=== PATIENT | female | born 1930 | race Caucasian/White ===

== ENCOUNTER 2017-02-12 06:32 | Observation (INO) ==
[2017-02-12] MEDS ORDERED: 0.9 % Sodium Chloride 1,000 ML IVC ONE (06:44)
--- NOTE | 2017-02-12 06:54 | Emergency Department Note ---
START Narrative - START START: 86 year old female with altered mental status brought to us via EMS. EMS states that patient was found on the toilet this morning by family members and her baseline is mobile and able to answers questions however now she appears increasingly drowsy and altered. will sign out to the day team, altered mental status workup has been started.
[2017-02-12 07:05] LABS: Eosinophils # 0.1 K/mcL (0.0-0.6); Eosinophils % 1.2 %; Hematocrit 39.3 % (35.3-44.9); Hemoglobin 13.5 g/dL (11.5-15.4); Immature Granulocytes % 0.7 % (0-4); Lymphocytes # 0.6 K/mcL (0.6-4.6); Lymphocytes % 7.7 %; Mean Corpuscular HGB Conc 34.4 g/dL (31.6-35.5); Mean Corpuscular Hemoglobin 29.2 pg (28.0-33.3); Mean Corpuscular Volume 85.1 fL (83.0-100.0); Mean Platelet Volume 10.7 fL (9.4-12.4); Monocytes # 0.2 K/mcL (0.0-1.3); Monocytes % 2.4 %; Neutrophils # 6.5 K/mcL (1.6-8.9); Platelet Count 145 K/mcL (140-400); Red Blood Count 4.62 M/mcL (3.82-4.97); Red Cell Distribution Width 14.2 % (11.5-14.5)
[2017-02-12 07:08] LABS: INR 1.2; Prothrombin Time 12.9 Seconds (9.4-12.1)
--- NOTE | 2017-02-12 07:09 | Emergency Department Note ---
Disposition Clinical Impression: Generalized weakness Altered mental status Qualifiers: Altered mental status type: unspecified Qualified Code(s): R41.82 - Altered mental status, unspecified Medication overdose Qualifiers: Encounter type: initial encounter Injury intent: accidental or unintentional Qualified Code(s): T50.901A - Poisoning by unspecified drugs, medicaments and biological substances, accidental (unintentional), initial encounter Disposition: Admitted As Inpatient Condition: Fair Referrals: NO,PCP [Primary Care Provider] - Forms: ED Satisfaction Letter Time of Disposition: 08:57 Altered Mental Status HPI - General Chief Complaint: ED Altered Mental Status Stated Complaint: Feels Terrible Time Seen by Provider: 02/12/17 07:09 Source: patient, family, EMS Mode of arrival: EMS Limitations: altered mental status Nursing Notes Reviewed: Yes Vital Signs Reviewed: Yes - History of Present Illness HPI Narrative: Patient is an 86-year-old female with past medical history of CVA, CAD, hyperlipidemia, hypertension, arthritis, dementia. She presented today via EMS due to altered mental status. According to family, patient was found sitting up on the toilet this morning and was confused. It is unknown if she fell and hit her head. Family is not present on my evaluation. However, according to EMS, the patient is usually baseline mobile and answers questions appropriately. On my exam, the patient was alert and oriented [address] She was not able to answer review of system questions. She says "everything hurts." Slurring of speech, can hardly keep her eyes open. Last known well was yesterday evening prior to bedtime. - Related Data Home Medications Medication Instructions Recorded Confirmed Aspirin 81 mg PO DAILY 06/08/16 02/12/17 Clopidogrel [Plavix] 75 mg PO DAILY 06/08/16 02/12/17 Escitalopram [Lexapro] 20 mg PO HS 06/08/16 02/12/17 Ferrous Sulfate [Iron] 325 mg PO DAILY 06/08/16 02/12/17 Furosemide [Lasix] 20 mg PO DAILY 06/08/16 02/12/17 Lactose-Reduced Food [Ensure 1 bottle PO BID 06/08/16 02/12/17 Complete] LevETIRAcetam [Keppra] 500 mg PO Q12H 06/08/16 02/12/17 Melatonin [Melatin] 3 mg PO HS PRN 06/08/16 02/12/17 Metformin [Glucophage] 500 mg PO BIDWM 06/08/16 02/12/17 Metoprolol XL (24 HR) Succ [Toprol 12.5 mg PO DAILY 06/08/16 02/12/17 Xl] Mirtazapine [Remeron] 15 mg PO HS 06/08/16 02/12/17 Multivitamin [Multivitamins] 1 tab PO DAILY 06/08/16 02/12/17 Methylphenidate HCl [Ritalin] 20 mg PO BID 06/27/16 02/12/17 Albuterol Sulfate [Proair 2 puff IH Q4H PRN 02/12/17 02/12/17 Respiclick] Fexofenadine HCl [Allergy Relief] 180 mg PO DAILY 02/12/17 02/12/17 Fluticasone Propionate [Flovent 1 puff IH BID 02/12/17 02/12/17 Hfa] HYDROcodone/Acet 7.5/325 mg [Lima 1 tab PO Q6H PRN 02/12/17 02/12/17 7.5-325 mg] Oxybutynin Chloride [Ditropan Xl] 5 mg PO HS 02/12/17 02/12/17 Oxygen 1 each .ROUTE AD 02/12/17 02/12/17 Triamcinolone Acet 0.1% CRM 1 appl TP BID 02/12/17 02/12/17 [Kenalog] Umeclidinium [place] [Incruse 1 puff IH DAILY 02/12/17 02/12/17 Ellipta] Previous Rx's Medication Instructions Recorded Isosorbide MONOnitrate (24 HR) 30 mg PO DAILY #30 tab.er.24h 06/10/16 [Imdur] Albuterol Neb [Proventil Neb] 2.5 mg IH Q6HR 30 Days 06/29/16 GuaiFENesin ER [Mucinex] 600 mg PO BID #10 tbbp.12hr 06/29/16 Alprazolam [Xanax 0.5 MG Tablet] 0.5 mg PO HS PRN #10 tablet 06/30/16 Allergies Allergy/AdvReac Type Severity Reaction Status Date / Time Amoxicillin Allergy Rash Verified 12/17/16 09:08 sulfamethoxazole Allergy Hives Verified 12/17/16 09:08 [From Bactrim] trimethoprim [From Bactrim] Allergy Hives Verified 12/17/16 09:08 Limitations: ROS unobtainable due to patients medical condition Past Medical History - Past Medical History Source: old records reviewed Medical history: Reports: arthritis, cardiomyopathy, CHF, coronary artery disease, CVA, dementia, diabetes, GERD, hyperlipidemia, hypertension, osteoporosis, seizures, syncope, TIA, valvular heart disease, other Surgical history: Reports: orthopedic, other (Lumbar fusion.), other ( 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 Craniotomy.) Psychiatric history: Reports: anxiety, bipolar, depression, other - Social History Smoking Status: Former smoker Smokeless Tobacco Status: No Alcohol use: Reports: none Drug use: Reports: none Physical Exam - General Limitations: altered mental status General appearance: other (very drowsy, can hardly keep eyes open) - Head Head exam: atraumatic, normocephalic, normal inspection - Eye Eye exam: Present: PERRL, EOMI. Absent: miosis, mydriasis - ENT ENT exam: normal exam, mucous membranes moist - Neck Neck exam: Present: normal inspection, full ROM, trachea midline. Absent: tenderness - Chest Chest inspection: Present: normal inspection, symmetric chest wall rise - Respiratory Respiratory exam: Present: normal lung sounds bilaterally - Cardiovascular Cardiovascular exam: Present: regular rate, normal rhythm, normal heart sounds - Abdominal Exam Abdominal exam: Present: soft, Non-Tender. Absent: tenderness, distention, guarding, rebound, rigidity - Extremities Exam Extremities exam: Present: full ROM, pedal edema (mild bilateral pedal edema and venous stasis dermatitis). Absent: tenderness - Neurological Exam Neurological exam: Present: other (drowsy, oriented x2, will not follow commands. Slurring of words) - Psychiatric Psychiatric exam: Present: flat affect, other - Skin Skin exam: Present: warm, dry, intact, normal color Course Course Narrative: Patient is hypertensive on presentation. Otherwise, her vitals were within normal limits on my exam. Patient is drowsy, can barely keep her eyes open, oriented to person and placed only, will not answer any review of system questions. She just keeps saying everything hurts. No focal neuro deficits. EKG shows left bundle-branch that is not new. Concern for medication interactions. 07:54 CBC and BMP show no major abnormality. Troponin negative. Alcohol level negative. CT the head was negative for any acute intracranial abnormality. Chest x-ray negative for any acute cardiopulmonary process. Currently waiting on urinalysis. Likely drug interaction. Patient is prescribed Lima and Xanax according to retail pharmacy manager prescription audit. 08:23 UA negative. ABG not concerning. Waiting UDS. 08:47 Urine Drug screen - negative. Will admit for further care and workup for AMS. Anoop Quijano, son, was contacted and confirmed patient was A&Ox3 yesterday evening and performed ADLs by herself, was found this morning in bathroom confused and "complete turnaround from her baseline." He denies any new meds, med changes, any falls that he knows of. Chest X-Ray 02/12/17 06:44 IMPRESSION: No acute cardiopulmonary disease. D/ / 02/12/2017 07:22:23 Yadiel Alvarado MD / lakeisha Interpreting Provider: Yadiel Alvarado MD Head CT 02/12/17 06:45 IMPRESSION: No acute intracranial abnormality. D/ / Quinton Arnold MD / Quinton Arnold MD Interpreting Provider: Quinton Arnold MD Vital Signs Temperature 97.6 F 02/12/17 06:35 Pulse Rate 99 02/12/17 06:35 Respiratory Rate 20 02/12/17 06:35 Blood Pressure 189/127 02/12/17 06:35 O2 Sat by Pulse Oximetry 90 02/12/17 06:35 Temperature 97.6 F 02/12/17 06:35 Pulse Rate 73 02/12/17 08:45 Respiratory Rate 22 02/12/17 08:45 Blood Pressure 157/102 02/12/17 08:45 O2 Sat by Pulse Oximetry 95 02/12/17 08:45 Oxygen Delivery Oxygen Delivery Nasal Cannula Altered Mental Status - MDM Narrative Medical decision making narrative: Patient is hypertensive on presentation. Otherwise, her vitals were within normal limits on my exam. Patient is drowsy, can barely keep her eyes open, oriented to person and placed only, will not answer any review of system questions. She just keeps saying everything hurts. No focal neuro deficits. EKG shows left bundle-branch that is not new. Concern for medication interactions. 07:54 CBC and BMP show no major abnormality. Troponin negative. Alcohol level negative. CT the head was negative for any acute intracranial abnormality. Chest x-ray negative for any acute cardiopulmonary process. Currently waiting on urinalysis. Likely drug interaction. Patient is prescribed Lima and Xanax according to retail pharmacy manager prescription audit. 08:23 UA negative. ABG not concerning. Waiting UDS. 08:47 Urine Drug screen - negative. Will admit for further care and workup for AMS. Anoop Qiujano, son, was contacted and confirmed patient was A&Ox3 yesterday evening and performed ADLs by herself, was found this morning in bathroom confused and "complete turnaround from her baseline." He denies any new meds, med changes, any falls that he knows of. - Medical Records Medical records reviewed: Yes I reviewed the patient's medical records. - Lab Data Lab results reviewed: Yes I reviewed the patient's lab results. Result diagrams: 02/12/17 06:51 02/12/17 06:51 Lab Results 02/12/17 02/12/17 02/12/17 Range/Units 06:51 06:51 06:51 WBC 7.4 (4.3-11.1) K/mcL RBC 4.62 (3.82-4.97) M/mcL Hgb 13.5 (11.5-15.4) g/dL Hct 39.3 (35.3-44.9) % MCV 85.1 (83.0-100.0) fL MCH 29.2 (28.0-33.3) pg MCHC 34.4 (31.6-35.5) g/dL RDW 14.2 (11.5-14.5) % Plt Count 145 (140-400) K/mcL MPV 10.7 (9.4-12.4) fL Immature Gran % 0.7 (0-4) % Seg Neutrophils % 88.0 % Lymphocytes % 7.7 % Monocytes % 2.4 % Eosinophils % 1.2 % Basophils % 0.0 % Neutrophils # 6.5 (1.6-8.9) K/mcL Lymphocytes # 0.6 (0.6-4.6) K/mcL Monocytes # 0.2 (0.0-1.3) K/mcL Eosinophils # 0.1 (0.0-0.6) K/mcL Basophils # 0.0 (0.0-0.2) K/mcL PT 12.9 H (9.4-12.1) Seconds INR 1.2 APTT 39.8 H (26.0-36.0) Seconds ABG pH (7.32-7.45) pH Units ABG pCO2 (35-45) mmHg ABG pO2 (85-104) mmHg ABG HCO3 (21-27) mEQ/L ABG Total CO2 (20-26) mEq/L ABG O2 Saturation (95-98) % ABG Base Excess (-2.0 to 3.0) mEq/L Blood Gas Modality Inspired O2 % Sodium 140 (136-145) mEq/L Potassium 3.4 L (3.5-4.5) mEq/L Chloride 100 (98-109) mEq/L Carbon Dioxide 28 (19-29) mEq/L BUN 21 H (7-20) mg/dL Creatinine 0.77 (0.57-1.11) mg/dL Est GFR ( Amer) > 60 (> 60) Est GFR (Non-Af Amer) > 60 (> 60) BUN/Creatinine Ratio 27 H (6-26) Glucose 189 H (70-99) mg/dL Calculated Osmolality 298 (280-300) Calcium 9.2 (8.6-10.8) mg/dL Total Bilirubin 1.3 H (0.2-1.2) mg/dL Direct Bilirubin 0.5 (0.0-0.5) mg/dL Indirect Bilirubin 0.8 (0.0-1.2) mg/dL AST 12 (5-34) Units/L ALT 7 (0-55) Units/L Alkaline Phosphatase 129 H (38-126) Units/L Troponin I (0-0.03) ng/mL Serum Total Protein 7.4 (6.0-8.3) g/dL Albumin 4.5 (3.5-5.0) g/dL Globulin 2.9 (2.4-3.5) g/dL Albumin/Globulin Ratio 1.6 (1.1-2.2) Urine Color (Yellow) Urine Clarity (Clear) Urine pH (5.0-8.0) pH Units Ur Specific [place] (1.010-1.025) Urine Protein (Neg-Trace) mg/dL Urine Glucose (UA) (Normal) mg/dL Urine Ketones (Negative) mg/dL Urine Blood (Negative) Urine Nitrite (Negative) Urine Bilirubin (Negative) Urine Urobilinogen (Normal) mg/dL Ur Leukocyte Esterase (Negative) Urine Microscopic RBC (0-3) per hpf Urine Microscopic WBC (0-3) per hpf Ur Squamous Epith Cells (None-Few) per lpf Urine Bacteria (None-Few) per hpf Hyaline Casts (None-Few) per lpf Ur Culture Indicated? (NO) Urine Opiates Screen (Pvhtrd=306) ng/mL Ur Barbiturates Screen (Iksxvl=833) ng/mL Ur Phencyclidine Scrn (Cutoff=25) ng/mL Ur Amphetamines Screen (Vyftjy=7363) ng/mL U Benzodiazepines Scrn (Appbpk=503) ng/mL Urine Cocaine Screen (Cutoff= 300) ng/mL U Marijuana (THC) Screen (Cutoff = 50) ng/mL Ethyl Alcohol < 10 (0-10) mg/dL 02/12/17 02/12/17 02/12/17 Range/Units 06:51 08:00 08:00 WBC (4.3-11.1) K/mcL RBC (3.82-4.97) M/mcL Hgb (11.5-15.4) g/dL Hct (35.3-44.9) % MCV (83.0-100.0) fL MCH (28.0-33.3) pg MCHC (31.6-35.5) g/dL RDW (11.5-14.5) % Plt Count (140-400) K/mcL MPV (9.4-12.4) fL Immature Gran % (0-4) % Seg Neutrophils % % Lymphocytes % % Monocytes % % Eosinophils % % Basophils % % Neutrophils # (1.6-8.9) K/mcL Lymphocytes # (0.6-4.6) K/mcL Monocytes # (0.0-1.3) K/mcL Eosinophils # (0.0-0.6) K/mcL Basophils # (0.0-0.2) K/mcL PT (9.4-12.1) Seconds INR APTT (26.0-36.0) Seconds ABG pH (7.32-7.45) pH Units ABG pCO2 (35-45) mmHg ABG pO2 (85-104) mmHg ABG HCO3 (21-27) mEQ/L ABG Total CO2 (20-26) mEq/L ABG O2 Saturation (95-98) % ABG Base Excess (-2.0 to 3.0) mEq/L Blood Gas Modality Inspired O2 % Sodium (136-145) mEq/L Potassium (3.5-4.5) mEq/L Chloride (98-109) mEq/L Carbon Dioxide (19-29) mEq/L BUN (7-20) mg/dL Creatinine (0.57-1.11) mg/dL Est GFR ( Amer) (> 60) Est GFR (Non-Af Amer) (> 60) BUN/Creatinine Ratio (6-26) Glucose (70-99) mg/dL Calculated Osmolality (280-300) Calcium (8.6-10.8) mg/dL Total Bilirubin (0.2-1.2) mg/dL Direct Bilirubin (0.0-0.5) mg/dL Indirect Bilirubin (0.0-1.2) mg/dL AST (5-34) Units/L ALT (0-55) Units/L Alkaline Phosphatase (38-126) Units/L Troponin I 0.00 (0-0.03) ng/mL Serum Total Protein (6.0-8.3) g/dL Albumin (3.5-5.0) g/dL Globulin (2.4-3.5) g/dL Albumin/Globulin Ratio (1.1-2.2) Urine Color Yellow (Yellow) Urine Clarity Clear (Clear) Urine pH 7.5 (5.0-8.0) pH Units Ur Specific [place] 1.012 (1.010-1.025) Urine Protein >=300 H (Neg-Trace) mg/dL Urine Glucose (UA) 100 H (Normal) mg/dL Urine Ketones Negative (Negative) mg/dL Urine Blood Moderate H (Negative) Urine Nitrite Negative (Negative) Urine Bilirubin Negative (Negative) Urine Urobilinogen Normal (Normal) mg/dL Ur Leukocyte Esterase Negative (Negative) Urine Microscopic RBC 5-15 H (0-3) per hpf Urine Microscopic WBC 3-5 H (0-3) per hpf Ur Squamous Epith Cells Many H (None-Few) per lpf Urine Bacteria None Seen (None-Few) per hpf Hyaline Casts None Seen (None-Few) per lpf Ur Culture Indicated? NO (NO) Urine Opiates Screen Negative (Fgvmfh=572) ng/mL Ur Barbiturates Screen Negative (Xuoact=596) ng/mL Ur Phencyclidine Scrn Negative (Cutoff=25) ng/mL Ur Amphetamines Screen Negative (Wpntwb=9437) ng/mL U Benzodiazepines Scrn Negative (Hbhiqv=066) ng/mL Urine Cocaine Screen Negative (Cutoff= 300) ng/mL U Marijuana (THC) Screen Negative (Cutoff = 50) ng/mL Ethyl Alcohol (0-10) mg/dL 02/12/17 Range/Units 08:05 WBC (4.3-11.1) K/mcL RBC (3.82-4.97) M/mcL Hgb (11.5-15.4) g/dL Hct (35.3-44.9) % MCV (83.0-100.0) fL MCH (28.0-33.3) pg MCHC (31.6-35.5) g/dL RDW (11.5-14.5) % Plt Count (140-400) K/mcL MPV (9.4-12.4) fL Immature Gran % (0-4) % Seg Neutrophils % % Lymphocytes % % Monocytes % % Eosinophils % % Basophils % % Neutrophils # (1.6-8.9) K/mcL Lymphocytes # (0.6-4.6) K/mcL Monocytes # (0.0-1.3) K/mcL Eosinophils # (0.0-0.6) K/mcL Basophils # (0.0-0.2) K/mcL PT (9.4-12.1) Seconds INR APTT (26.0-36.0) Seconds ABG pH 7.46 H (7.32-7.45) pH Units ABG pCO2 39 (35-45) mmHg ABG pO2 89 (85-104) mmHg ABG HCO3 27.7 H (21-27) mEQ/L ABG Total CO2 28.9 H (20-26) mEq/L ABG O2 Saturation 97 (95-98) % ABG Base Excess 3.7 H (-2.0 to 3.0) mEq/L Blood Gas Modality [place] Inspired O2 28 % Sodium (136-145) mEq/L Potassium (3.5-4.5) mEq/L Chloride (98-109) mEq/L Carbon Dioxide (19-29) mEq/L BUN (7-20) mg/dL Creatinine (0.57-1.11) mg/dL Est GFR ( Amer) (> 60) Est GFR (Non-Af Amer) (> 60) BUN/Creatinine Ratio (6-26) Glucose (70-99) mg/dL Calculated Osmolality (280-300) Calcium (8.6-10.8) mg/dL Total Bilirubin (0.2-1.2) mg/dL Direct Bilirubin (0.0-0.5) mg/dL Indirect Bilirubin (0.0-1.2) mg/dL AST (5-34) Units/L ALT (0-55) Units/L Alkaline Phosphatase (38-126) Units/L Troponin I (0-0.03) ng/mL Serum Total Protein (6.0-8.3) g/dL Albumin (3.5-5.0) g/dL Globulin (2.4-3.5) g/dL Albumin/Globulin Ratio (1.1-2.2) Urine Color (Yellow) Urine Clarity (Clear) Urine pH (5.0-8.0) pH Units Ur Specific [place] (1.010-1.025) Urine Protein (Neg-Trace) mg/dL Urine Glucose (UA) (Normal) mg/dL Urine Ketones (Negative) mg/dL Urine Blood (Negative) Urine Nitrite (Negative) Urine Bilirubin (Negative) Urine Urobilinogen (Normal) mg/dL Ur Leukocyte Esterase (Negative) Urine Microscopic RBC (0-3) per hpf Urine Microscopic WBC (0-3) per hpf Ur Squamous Epith Cells (None-Few) per lpf Urine Bacteria (None-Few) per hpf Hyaline Casts (None-Few) per lpf Ur Culture Indicated? (NO) Urine Opiates Screen (Zyarta=602) ng/mL Ur Barbiturates Screen (Stuilk=940) ng/mL Ur Phencyclidine Scrn (Cutoff=25) ng/mL Ur Amphetamines Screen (Dheqrc=4156) ng/mL U Benzodiazepines Scrn (Zkjrir=856) ng/mL Urine Cocaine Screen (Cutoff= 300) ng/mL U Marijuana (THC) Screen (Cutoff = 50) ng/mL Ethyl Alcohol (0-10) mg/dL - Radiology Data Radiology results reviewed: Yes I reviewed the patient's radiology results. Chest X-Ray 02/12/17 06:44 IMPRESSION: No acute cardiopulmonary disease. D/ / 02/12/2017 07:22:23 Yadiel Alvarado MD / [email or web address] Interpreting Provider: Yadiel Alvarado MD Head CT 02/12/17 06:45 IMPRESSION: No acute intracranial abnormality. D/ / Quinton Arnold MD / Quinton Arnold MD Interpreting Provider: Quinton Arnold MD - EKG Data EKG attestation: Yes I reviewed and interpreted this EKG. EKG results narrative: 02/12/2017 at 06:46. Left bundle branch block. Sinus rhythm. Rate 95. DE 195. QRS 161. QTc 444. No acute ST elevation or depression. No changes from previous EKG from 12/17/2016 TPA Checklist - LKW: 3-4.5 hrs Add. Contraindications Patient/family understanding: The patient/family members have been counseled and understood the risk, benefit , and alternatives of treatment. Mindy - Mindy Situation: Demographics, MOA Background: Presenting Complaint, Relevant PMH, Meds, & Allergies Assessment: Vital Signs, Course and respsone to treatment, Exam Concerns, Patient/Family Expectation, Pertinant Lab Results, Outstanding Labs Recommendation: Barrier(s) to disposition, Recommendation based on pending studies, treatments, or consults Mindy Report Given to: Dr. Dylna Guillen Repor Time: 08:57
[2017-02-12 07:11] LABS: Activated Partial Thrombo Time 39.8 Seconds (26.0-36.0)
[2017-02-12 07:19] LABS: Alanine Aminotransferase 7 Units/L (0-55); Albumin 4.5 g/dL (3.5-5.0); Albumin/Globulin Ratio 1.6 (1.1-2.2); Alkaline Phosphatase 129 Units/L (38-126); Aspartate Amino Transferase 12 Units/L (5-34); BUN/Creatinine Ratio 27 (6-26); Bilirubin,Direct 0.5 mg/dL (0.0-0.5); Bilirubin,Indirect 0.8 mg/dL (0.0-1.2); Bilirubin,Total 1.3 mg/dL (0.2-1.2); Blood Urea Nitrogen 21 mg/dL (7-20); Calcium 9.2 mg/dL (8.6-10.8); Carbon Dioxide 28 mEq/L (19-29); Chloride 100 mEq/L (98-109); Globulin 2.9 g/dL (2.4-3.5); Glucose 189 mg/dL (70-99); Osmolality,Calculated 298 (280-300); Potassium 3.4 mEq/L (3.5-4.5); Sodium 140 mEq/L (136-145); Total Protein 7.4 g/dL (6.0-8.3); eGFR For African Americans > 60 (> 60); eGFR For Non-African Americans > 60 (> 60)
--- NOTE | 2017-02-12 07:20 | Emergency Department Note ---
Disposition Clinical Impression: Altered mental status, Medication overdose Disposition: Admitted As Inpatient Condition: Fair Referrals: NO,PCP [Primary Care Provider] - Forms: ED Satisfaction Letter General Adult HPI - General Chief complaint: ED Altered Mental Status Stated complaint: Feels Terrible Source: patient, family, EMS Mode of arrival: EMS Limitations: altered mental status - History of Present Illness Pain Scale: 0 - Related Data Home Medications Medication Instructions Recorded Confirmed Aspirin 81 mg PO DAILY 06/08/16 02/12/17 Clopidogrel [Plavix] 75 mg PO DAILY 06/08/16 02/12/17 Escitalopram [Lexapro] 20 mg PO HS 06/08/16 02/12/17 Ferrous Sulfate [Iron] 325 mg PO DAILY 06/08/16 02/12/17 Furosemide [Lasix] 20 mg PO DAILY 06/08/16 02/12/17 Lactose-Reduced Food [Ensure 1 bottle PO BID 06/08/16 02/12/17 Complete] LevETIRAcetam [Keppra] 500 mg PO Q12H 06/08/16 02/12/17 Melatonin [Melatin] 3 mg PO HS PRN 06/08/16 02/12/17 Metformin [Glucophage] 500 mg PO BIDWM 06/08/16 02/12/17 Metoprolol XL (24 HR) Succ [Toprol 12.5 mg PO DAILY 06/08/16 02/12/17 Xl] Mirtazapine [Remeron] 15 mg PO HS 06/08/16 02/12/17 Multivitamin [Multivitamins] 1 tab PO DAILY 06/08/16 02/12/17 Methylphenidate HCl [Ritalin] 20 mg PO BID 06/27/16 02/12/17 Albuterol Sulfate [Proair 2 puff IH Q4H PRN 02/12/17 02/12/17 Respiclick] Fexofenadine HCl [Allergy Relief] 180 mg PO DAILY 02/12/17 02/12/17 Fluticasone Propionate [Flovent 1 puff IH BID 02/12/17 02/12/17 Hfa] HYDROcodone/Acet 7.5/325 mg [[place] 1 tab PO Q6H PRN 02/12/17 02/12/17 7.5-325 mg] Oxybutynin Chloride [Ditropan Xl] 5 mg PO HS 02/12/17 02/12/17 Oxygen 1 each .ROUTE AD 02/12/17 02/12/17 Triamcinolone Acet 0.1% CRM 1 appl TP BID 02/12/17 02/12/17 [Kenalog] Umeclidinium [place] [Incruse 1 puff IH DAILY 02/12/17 02/12/17 Ellipta] Previous Rx's Medication Instructions Recorded Isosorbide MONOnitrate (24 HR) 30 mg PO DAILY #30 tab.er.24h 06/10/16 [Imdur] Albuterol Neb [Proventil Neb] 2.5 mg IH Q6HR 30 Days 06/29/16 GuaiFENesin ER [Mucinex] 600 mg PO BID #10 tbbp.12hr 06/29/16 Alprazolam [Xanax 0.5 MG Tablet] 0.5 mg PO HS PRN #10 tablet 06/30/16 Allergies Allergy/AdvReac Type Severity Reaction Status Date / Time Amoxicillin Allergy Rash Verified 12/17/16 09:08 sulfamethoxazole Allergy Hives Verified 12/17/16 09:08 [From Bactrim] trimethoprim [From Bactrim] Allergy Hives Verified 12/17/16 09:08 Past Medical History - Past Medical History Medical history: Reports: arthritis, cardiomyopathy, CHF, coronary artery disease, CVA, dementia, diabetes, GERD, hyperlipidemia, hypertension, osteoporosis, seizures, syncope, TIA, valvular heart disease, other Surgical history: Reports: orthopedic, other (Lumbar fusion.), other ( 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 Craniotomy.) Psychiatric history: Reports: anxiety, bipolar, depression, other - Social History Smoking Status: Former smoker Smokeless Tobacco Status: No Alcohol use: Reports: none Drug use: Reports: none Physical Exam - General Limitations: altered mental status General appearance: alert Course Vital Signs Temperature 97.6 F 02/12/17 06:35 Pulse Rate 99 02/12/17 06:35 Respiratory Rate 20 02/12/17 06:35 Blood Pressure 189/127 02/12/17 06:35 O2 Sat by Pulse Oximetry 90 02/12/17 06:35 Temperature 97.6 F 02/12/17 06:35 Pulse Rate 91 02/12/17 08:01 Respiratory Rate 20 02/12/17 08:01 Blood Pressure 186/103 02/12/17 08:01 O2 Sat by Pulse Oximetry 96 02/12/17 08:01 Oxygen Delivery Oxygen Delivery Nasal Cannula Medical Decision Making - Lab Data Result diagrams: 02/12/17 06:51 02/12/17 06:51 Lab Results 02/12/17 02/12/17 02/12/17 Range/Units 06:51 06:51 06:51 WBC 7.4 (4.3-11.1) K/mcL RBC 4.62 (3.82-4.97) M/mcL Hgb 13.5 (11.5-15.4) g/dL Hct 39.3 (35.3-44.9) % MCV 85.1 (83.0-100.0) fL MCH 29.2 (28.0-33.3) pg MCHC 34.4 (31.6-35.5) g/dL RDW 14.2 (11.5-14.5) % Plt Count 145 (140-400) K/mcL MPV 10.7 (9.4-12.4) fL Immature Gran % 0.7 (0-4) % Seg Neutrophils % 88.0 % Lymphocytes % 7.7 % Monocytes % 2.4 % Eosinophils % 1.2 % Basophils % 0.0 % Neutrophils # 6.5 (1.6-8.9) K/mcL Lymphocytes # 0.6 (0.6-4.6) K/mcL Monocytes # 0.2 (0.0-1.3) K/mcL Eosinophils # 0.1 (0.0-0.6) K/mcL Basophils # 0.0 (0.0-0.2) K/mcL PT 12.9 H (9.4-12.1) Seconds INR 1.2 APTT 39.8 H (26.0-36.0) Seconds Sodium 140 (136-145) mEq/L Potassium 3.4 L (3.5-4.5) mEq/L Chloride 100 (98-109) mEq/L Carbon Dioxide 28 (19-29) mEq/L BUN 21 H (7-20) mg/dL Creatinine 0.77 (0.57-1.11) mg/dL Est GFR ( Amer) > 60 (> 60) Est GFR (Non-Af Amer) > 60 (> 60) BUN/Creatinine Ratio 27 H (6-26) Glucose 189 H (70-99) mg/dL Calculated Osmolality 298 (280-300) Calcium 9.2 (8.6-10.8) mg/dL Total Bilirubin 1.3 H (0.2-1.2) mg/dL Direct Bilirubin 0.5 (0.0-0.5) mg/dL Indirect Bilirubin 0.8 (0.0-1.2) mg/dL AST 12 (5-34) Units/L ALT 7 (0-55) Units/L Alkaline Phosphatase 129 H (38-126) Units/L Troponin I (0-0.03) ng/mL Serum Total Protein 7.4 (6.0-8.3) g/dL Albumin 4.5 (3.5-5.0) g/dL Globulin 2.9 (2.4-3.5) g/dL Albumin/Globulin Ratio 1.6 (1.1-2.2) Ethyl Alcohol < 10 (0-10) mg/dL 02/12/17 Range/Units 06:51 WBC (4.3-11.1) K/mcL RBC (3.82-4.97) M/mcL Hgb (11.5-15.4) g/dL Hct (35.3-44.9) % MCV (83.0-100.0) fL MCH (28.0-33.3) pg MCHC (31.6-35.5) g/dL RDW (11.5-14.5) % Plt Count (140-400) K/mcL MPV (9.4-12.4) fL Immature Gran % (0-4) % Seg Neutrophils % % Lymphocytes % % Monocytes % % Eosinophils % % Basophils % % Neutrophils # (1.6-8.9) K/mcL Lymphocytes # (0.6-4.6) K/mcL Monocytes # (0.0-1.3) K/mcL Eosinophils # (0.0-0.6) K/mcL Basophils # (0.0-0.2) K/mcL PT (9.4-12.1) Seconds INR APTT (26.0-36.0) Seconds Sodium (136-145) mEq/L Potassium (3.5-4.5) mEq/L Chloride (98-109) mEq/L Carbon Dioxide (19-29) mEq/L BUN (7-20) mg/dL Creatinine (0.57-1.11) mg/dL Est GFR ( Amer) (> 60) Est GFR (Non-Af Amer) (> 60) BUN/Creatinine Ratio (6-26) Glucose (70-99) mg/dL Calculated Osmolality (280-300) Calcium (8.6-10.8) mg/dL Total Bilirubin (0.2-1.2) mg/dL Direct Bilirubin (0.0-0.5) mg/dL Indirect Bilirubin (0.0-1.2) mg/dL AST (5-34) Units/L ALT (0-55) Units/L Alkaline Phosphatase (38-126) Units/L Troponin I 0.00 (0-0.03) ng/mL Serum Total Protein (6.0-8.3) g/dL Albumin (3.5-5.0) g/dL Globulin (2.4-3.5) g/dL Albumin/Globulin Ratio (1.1-2.2) Ethyl Alcohol (0-10) mg/dL Attestation Statement - Attestation Attestation: I examined this patient and my medical decision-making was reviewed with the [facility] [employer] [facility]/PA/Advanced Practice Nurse/Resident Physician. I agree with the documented findings, disposition and treatment plan as described except to the extent set forth below. [id number] time provided Care assumed from Dr. Burt at 7 AM pending test results and reevaluation. Patient presents with increased sleepiness described as altered mental status from baseline. At the time of my exam she is awake and sleepy. She is slow to follow commands without focal deficit. Gives incompletely correct answers to questions. Workup pending. Review of medication list pending 08:08: Attempted to contact the patient's son by telephone number area code [phone] but there was no answer
[2017-02-12 07:22] LABS: Ethanol < 10 mg/dL (0-10)
[2017-02-12 08:06] LABS: Bilirubin,Urine Negative (Negative); Blood,Urine Moderate (Negative); Clarity,Urine Clear (Clear); Color,Urine Yellow (Yellow); Glucose,Urine (UA) 100 mg/dL (Normal); Ketones,Urine Negative (Negative); Leukocyte Esterase,Urine Negative (Negative); Nitrite,Urine Negative (Negative); PH,Urine 7.5 pH Units (5.0-8.0); Protein,Urine >=300 mg/dL (Neg-Trace); Specific Gravity,Urine 1.012 (1.010-1.025); Urobilinogen,Urine Normal (Normal)
[2017-02-12 08:09] LABS: Bacteria,Urine None Seen per hpf (None-Few); Hyaline Casts,Urine None Seen per lpf (None-Few); Squamous Epithelial Cell,Urine Many per lpf (None-Few)
[2017-02-12 08:20] LABS: ABG Base Excess 3.7 mEq/L (-2.0 to 3.0); ABG HCO3 27.7 mEQ/L (21-27); ABG Oxygen Saturation 97 % (95-98); ABG PCO2 39 mmHg (35-45); ABG PH 7.46 pH Units (7.32-7.45); ABG PO2 89 mmHg (85-104); ABG TCO2 28.9 mEq/L (20-26); Blood Gas FiO2 28 %
[2017-02-12 08:45] LABS: Amphetamine Screen,Urine Negative ng/mL (Cutoff=1000); Barbiturate Screen,Urine Negative ng/mL (Cutoff=200); Benzodiazepines Screen,Urine Negative ng/mL (Cutoff=200); Cannabinoid Screen,Urine Negative ng/mL (Cutoff = 50); Cocaine Screen,Urine Negative ng/mL (Cutoff= 300); Opiate Screen,Urine Negative ng/mL (Cutoff=300); Phencyclidine Screen,Urine Negative ng/mL (Cutoff=25)
[2017-02-12] MEDS ORDERED: Naloxone 0.4 MG/ML INJ IVP PRN (08:57)
[2017-02-12] MEDS ORDERED: Acetaminophen 325 MG TABLET PO PRN (08:57)
[2017-02-12] MEDS ORDERED: Melatonin 3 MG TABLET PO PRN (09:01)
[2017-02-12] MEDS ORDERED: Dextrose Gel 15 GM PO PRN ×2 (09:03)
[2017-02-12] MEDS ORDERED: *HR* Dextrose 50 % in Water (Syg) 50 ML SYRINGE IVP PRN (09:03)
[2017-02-12] MEDS ORDERED: D5% in Water 1,000 ML IVC PRN (09:03)
[2017-02-12] MEDS: levETIRAcetam 250 MG TABLET PO SCH ×2 (09:15→20:25)
--- NOTE | 2017-02-12 09:54 | Internal Med History&Physical ---
Date of Encounter: 02/12/17 Time of Encounter: 09:00 Assessment and Plan (1) Altered mental status Current visit: Yes Status: Acute Observation. Patient with excessive somnolence and confusion. Could be related to medications that the patient is taking. She is on multiple medications with sedative effects. We will check Keppra level. Also seizure precautions. Monitor vital signs closely. CT of the head was negative. If altered mental status persists, consider EEG and lumbar puncture along with neurology consult. Qualifiers: Altered mental status type: somnolence Qualified Code(s): R40.0 - Somnolence (2) CAD (coronary artery disease) Current visit: No Status: Chronic Continue aspirin and Plavix along with metoprolol. Qualifiers: Coronary Disease-Associated Artery/Lesion type: unspecified vessel or lesion type [place] vs. transplanted heart: [place] heart Associated angina: without angina Qualified Code(s): I25.10 - Atherosclerotic heart disease of [place] coronary artery without angina pectoris (3) Diabetes mellitus Current visit: Yes Status: Chronic Blood sugars slightly elevated this morning. We will monitor blood sugars and place patient on sliding scale insulin. Qualifiers: Diabetes mellitus type: type 2 Diabetes mellitus complication status: with kidney complications Diabetes mellitus complication detail: with chronic kidney disease Diabetes mellitus oysterman insulin use: without oysterman use Chronic kidney disease stage: stage 3 (moderate) Qualified Code(s): E11.22 - Type 2 diabetes mellitus with diabetic chronic kidney disease; N18.3 - Chronic kidney disease, stage 3 (moderate) (4) Seizure disorder Current visit: No Status: Chronic Seizure precautions. Check Keppra level. Continue Keppra if levels normal or low. (5) Accelerated hypertension Current visit: Yes Status: Acute Patient's blood pressure has been elevated since coming to the ER. We will monitor closely. Continue home medications and will also give intravenous medications as needed to control blood pressure better. Internal Medicine - H&P: HPI Chief complaint: Altered Mental status/drowsiness and confusion Admitted From: Emergency Dept Plans for Post Hospital Care: Home History of present illness: Ms. Quinones is a 86 year old female patient with a past history of coronary artery disease, CVA, hypertension, hyperlipidemia, seizure disorder, anxiety and depression, was brought in by EMS after she was found confused and very drowsy with decreased responsiveness. She was apparently found by her son in the bathroom and then EMS was called. The patient is unable to provide much history but history has been obtained through the review of ED records. Patient was apparently admitted baseline when she went to bed last night. Patient is on multiple medications which can cause sedation. Currently the patient is awake and able to wake up and answers some questions but is still not oriented and does not know where she is. 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 Craniotomy.) - Social History Smoking Status: Former smoker Smokeless Tobacco Status: No Alcohol use: none Drug use: none - Family History Mother Living Status: Hx Family Cardiac Disorders: Yes Hx Family Respiratory Disorders: No Hx Family Cancer: No Hx Family GI Disorders: No Hx Family Endocrine Disorder: No Internal Medicine - H&P: Meds Aspirin 81 mg PO DAILY 06/08/16 [History] Clopidogrel [Plavix] 75 mg PO DAILY 06/08/16 [History] Escitalopram [Lexapro] 20 mg PO HS 06/08/16 [History] Ferrous Sulfate [Iron] 325 mg PO DAILY 06/08/16 [History] Furosemide [Lasix] 20 mg PO DAILY 06/08/16 [History] Lactose-Reduced Food [Ensure Complete] 1 bottle PO BID 06/08/16 [History] LevETIRAcetam [Keppra] 500 mg PO Q12H 06/08/16 [History] Melatonin [Melatin] 3 mg PO HS PRN 06/08/16 [History] Metformin [Glucophage] 500 mg PO BIDWM 06/08/16 [History] Metoprolol XL (24 HR) Succ [Toprol Xl] 12.5 mg PO DAILY 06/08/16 [History] Mirtazapine [Remeron] 15 mg PO HS 06/08/16 [History] Multivitamin [Multivitamins] 1 tab PO DAILY 06/08/16 [History] Isosorbide MONOnitrate (24 HR) [Imdur] 30 mg PO DAILY #30 tab.er.24h 06/10/16 [ Rx] Methylphenidate HCl [Ritalin] 20 mg PO BID 06/27/16 [History] Albuterol Neb [Proventil Neb] 2.5 mg IH Q6HR 30 Days 06/29/16 [Rx] GuaiFENesin ER [Mucinex] 600 mg PO BID #10 tbbp.12hr 06/29/16 [Rx] Alprazolam [Xanax 0.5 MG Tablet] 0.5 mg PO HS PRN #10 tablet 06/30/16 [Rx] Albuterol Sulfate [Proair Respiclick] 2 puff IH Q4H PRN 02/12/17 [History] Fexofenadine HCl [Allergy Relief] 180 mg PO DAILY 02/12/17 [History] Fluticasone Propionate [Flovent Hfa] 1 puff IH BID 02/12/17 [History] HYDROcodone/Acet 7.5/325 mg [[place] 7.5-325 mg] 1 tab PO Q6H PRN 02/12/17 [ History] Oxybutynin Chloride [Ditropan Xl] 5 mg PO HS 02/12/17 [History] Oxygen 1 each .ROUTE AD 02/12/17 [History] Triamcinolone Acet 0.1% CRM [Kenalog] 1 appl TP BID 02/12/17 [History] Umeclidinium [place] [Incruse Ellipta] 1 puff IH DAILY 02/12/17 [History] Allergies Amoxicillin Allergy (Verified 12/17/16 09:08) Rash sulfamethoxazole [From Bactrim] Allergy (Verified 12/17/16 09:08) Hives trimethoprim [From Bactrim] Allergy (Verified 12/17/16 09:08) Hives All Systems PM: A 10-system review of systems was performed and is negative for pertinent findings except as documented above in the HPI. Review of systems: Review of systems obtained through summarization of ED records and from some answers provided by the patient. Not accurately obtainable at this time due to patient's mental status - Constitutional Constitutional: no chills, no fever(s), no night sweats - EENT Eyes: no change in vision, no discharge, no pain, no photophobia Ears: no ear discharge, no ear pain, no tinnitus Nose, mouth and throat: no dysphagia, no nasal discharge, no neck pain, no sore throat - Cardiovascular Cardiovascular ROS IM: no chest pain, no diaphoresis, no dyspnea, no lightheadedness, no palpitations, no syncope - Respiratory Respiratory: no cough, no dyspnea, no wheezing, no excessive phlegm production - Gastrointestinal Gastrointestinal: no abdominal pain, no diarrhea, no hematemesis, no hematochezia, no melena, no nausea, no vomiting - Genitourinary Genitourinary: no change in urinary stream, no dysuria, no flank pain, no hematuria - Musculoskeletal Musculoskeletal ROS IM: no numbness, no tingling - Integumentary Integumentary IM: no rash, no unusual bruising - Neurological Neurological ROS: behavioral changes, confusion - Hematologic/Lymphatic Hematologic/Lymphatic: no easy bruising - Constitutional Vitals: Temp Pulse Resp BP Pulse Ox 97.6 F 73 22 157/102 95 02/12/17 06:35 02/12/17 08:45 02/12/17 08:45 02/12/17 08:45 02/12/17 08:45 General appearance: Present: cooperative, A&O X 1, mild distress, answers questions appropriately (Answers some questions appropriately) - Eye Eye exam: Present: PERRL, conjuntiva pink, sclera anicteric - Neck Neck exam general surgery: Present: supple, trachea midline. Absent: lymphadenopathy - Respiratory Respiratory exam: Present: CTAB. Absent: accessory muscle use, rales, rhonchi, wheezes - Cardiovascular Cardiovascular exam: Present: RRR, +S1, +S2, systolic murmur. Absent: diastolic murmur, gallop, rubs - GI/Abdominal GI/Abdominal exam: Present: normal bowel sounds, soft, no peritoneal signs. Absent: distended, tenderness - Extremities Exam Extremities exam: Present: warm, radial pulses palpable and symetrical. Absent : calf tenderness, cyanotic, pedal edema - Neurological Exam Neurological exam: Absent: facial droop, speech deficit Additional comments: Drowsy but wakes up easily. Answers symptoms questions. Disoriented. Not following commands well. - Skin Skin exam: Present: dry, intact Internal Med - H&P Results - Labs CBC & Chem 7: 02/12/17 06:51 02/12/17 06:51 Labs: Short CBC 02/12/17 Range/Units 06:51 WBC 7.4 (4.3-11.1) K/mcL Hgb 13.5 (11.5-15.4) g/dL Hct 39.3 (35.3-44.9) % Plt Count 145 (140-400) K/mcL Neutrophils # 6.5 (1.6-8.9) K/mcL BMP 02/12/17 06:51 Sodium 140 Potassium 3.4 L Chloride 100 Carbon Dioxide 28 BUN 21 H Creatinine 0.77 Glucose 189 H Calcium 9.2 Cardiac Enzymes 02/12/17 Range/Units 06:51 Troponin I 0.00 (0-0.03) ng/mL Liver Function 02/12/17 Range/Units 06:51 Total Bilirubin 1.3 H (0.2-1.2) mg/dL Direct Bilirubin 0.5 (0.0-0.5) mg/dL AST 12 (5-34) Units/L ALT 7 (0-55) Units/L Alkaline Phosphatase 129 H (38-126) Units/L Albumin 4.5 (3.5-5.0) g/dL Urine 02/12/17 Range/Units 08:00 Urine Color Yellow (Yellow) Urine Clarity Clear (Clear) Urine pH 7.5 (5.0-8.0) pH Units Ur Specific [place] 1.012 (1.010-1.025) Urine Protein >=300 H (Neg-Trace) mg/dL Urine Glucose (UA) 100 H (Normal) mg/dL - ABG Interpretation ABG results: 02/12/17 08:05 ABG pH 7.46 H ABG pCO2 39 ABG pO2 89 ABG HCO3 27.7 H ABG Total CO2 28.9 H ABG O2 Saturation 97 ABG Base Excess 3.7 H - Impressions ITS Impressions Chest X-Ray 02/12/17 06:44 IMPRESSION: No acute cardiopulmonary disease. D/ : / 02/12/2017 07:22:23 Yadiel Alvarado MD / [email or web address] Interpreting Provider: Yadiel Alvarado MD Head CT 02/12/17 06:45 IMPRESSION: No acute intracranial abnormality. D/ / Quinton Arnold MD / Quinton Arnold MD Interpreting Provider: Quinton rAnold MD - Attending Attestation This document has been at least partially created by [employer] recognition technology by Dr. Richardson. Errors in grammar, wording or other phrases may exist. If errors are found after the documentation is signed, they will be addressed individually in the addendum section of this document when appropriate.
[2017-02-12] MEDS: Insulin LISPRO 300 UNITS/3 ML VIAL SQ SCH ×3 (11:30→20:26)
--- NOTE | 2017-02-12 11:40 | Electrocardiograph Report ---
[place] [employer] Test Date: 2017-02-12 Pat Name: Chanel Quinones Department: 102 Room: 3B90 Gender: F Home Specialist: Van : [id number] Requested By: Munira Holley Order Number: [id number] Reading MD: Vaibhav Antoine MD Measurements Intervals [place] Rate: 95 P: 89 [place]: 195 QRS: -68 QRSD: 161 T: 75 QT: 391 QTc: 444 Interpretive Statements SINUS RHYTHM MARKED LEFT AXIS DEVIATION [QRS AXIS < -30] LEFT BUNDLE BRANCH BLOCK [120+ ms QRS DURATION, 80+ ms Q/S IN V1/V2, 85+ ms R IN I/aVL/V5/V6]; not new, present 12/17/16 Electronically Signed On 02-12-2017 11:38:49 EDT by Vaibhav Antoine MD
[2017-02-12] MEDS: Methylphenidate HCl 10 MG TABLET PO SCH (20:25)
[2017-02-12] MEDS: Fluticasone Propionate Nasal 50 MCG/SPRAY BOTTLE NS SCH (20:26)
[2017-02-12] MEDS: Mirtazapine 15 MG TABLET PO SCH (20:26)
[2017-02-12] MEDS ORDERED: NON-FORMULARY MEDICATION 1 EACH EACH (Lactose-Reduced Food [Ensure Complete] 1 BOTTLE) PO SCH (21:00)
[2017-02-13] MEDS: Insulin LISPRO 300 UNITS/3 ML VIAL SQ SCH ×4 (08:14→21:17)
[2017-02-13] MEDS: Metoprolol XL (24 HR) Succ 25 MG TAB.ER.24H PO SCH (11:36)
[2017-02-13] MEDS: Aspirin 81 MG TAB.CHEW PO SCH (11:37)
[2017-02-13] MEDS: Loratadine 10 MG TABLET PO SCH (11:37)
[2017-02-13] MEDS: Multivit/Ca/Min/Fe/FA 1 TAB TABLET PO SCH (11:37)
[2017-02-13] MEDS: Furosemide 20 MG TABLET PO SCH (11:37)
[2017-02-13] MEDS: levETIRAcetam 250 MG TABLET PO SCH ×2 (11:37→20:17)
[2017-02-13] MEDS: Methylphenidate HCl 10 MG TABLET PO SCH ×2 (11:37→20:16)
[2017-02-13] MEDS: Isosorbide MONOnitrate (24 HR) 30 MG TAB.ER.24H PO SCH (11:37)
[2017-02-13] MEDS: Fluticasone Propionate Nasal 50 MCG/SPRAY BOTTLE NS SCH ×2 (12:03→20:17)
--- NOTE | 2017-02-13 13:46 | Neurology - Consult Note ---
Date of Encounter: 02/13/17 Time of Encounter: 13:40 Assessment and Plan (1) Acute exacerbation of chronic obstructive pulmonary disease (COPD) Current Visit: No Status: Acute I agree with the initial impression of medical team that this appears to be mainly related to medication side effects. I saw no evidence suggesting presence of new LOCKSTITCH SHOULDER JOINER pathology. No fever, no headache, no nuchal rigidity and patient wide awake with a smile on her face. LP unnecessary. EEG not necessary as well, since there is no symptoms suggesting seizures. She may however, has a baseline cognitive impairment due to advanced age but this will be difficult to assess as inpatient. She is oriented to person and place. Language appears intact. Further testing not necessary from neurological perspective. Please continue medical and supportive care. WIll sign off and Please call if any questions (2) Altered mental status Current Visit: Yes Status: Acute Qualifiers: Altered mental status type: somnolence Qualified Code(s): R40.0 - Somnolence History of Present Illness Chief complaint: confusion HPI: Ms. Quinones is a 86 year old female with PMH significant for DM, HTN, chronic pain syndrome, history of hemorrhagic stroke 4 years ago, anxiety, TIAs, possible seizure disorder? who developed mental status changes. Patient is interviewed in the presence of her son who provided rather detailed useful information. Patient was found to be sitting in the chair and had her head dropped on the side. She lives with another son who thought she was too sleepy but the other son says that she needs to checked out and admits that the patient may have been taking too much medications. 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 Apparently she is doing much better now. CT of head yesterday in the ER was reported no acute intracranial abnormality. No reported seizure activity. No fever, patient has no headaches. Hospitalist kept her overnight and continued on medical treatment and planned to get LP and EEG or MRI of brain if conditions not improving today, but it appears that she recovered. Past Med Surg Social Fam HX - Past Medical History Medical history: arthritis, cardiomyopathy, CHF, coronary artery disease, CVA, dementia, diabetes, GERD, hyperlipidemia, hypertension, osteoporosis, seizures, syncope, TIA, valvular heart disease, other Psychiatric history: anxiety, depression, other - Past Surgical History Surgical History: orthopedic, other, other - Social History Smoking Status: Former smoker Smokeless Tobacco Status: No Alcohol use: none Drug use: none - Family History Mother Name: Bharat Harris Living Status: Hx Family Cardiac Disorders: Yes Hx Family Respiratory Disorders: No Hx Family Cancer: No Hx Family GI Disorders: No Hx Family Endocrine Disorder: No Medications and Allergies Aspirin 81 mg PO DAILY 06/08/16 [History] Clopidogrel [Plavix] 75 mg PO DAILY 06/08/16 [History] Escitalopram [Lexapro] 20 mg PO HS 06/08/16 [History] Ferrous Sulfate [Iron] 325 mg PO DAILY 06/08/16 [History] Furosemide [Lasix] 20 mg PO DAILY 06/08/16 [History] Lactose-Reduced Food [Ensure Complete] 1 bottle PO BID 06/08/16 [History] LevETIRAcetam [Keppra] 500 mg PO Q12H 06/08/16 [History] Melatonin [Melatin] 3 mg PO HS PRN 06/08/16 [History] Metformin [Glucophage] 500 mg PO BIDWM 06/08/16 [History] Metoprolol XL (24 HR) Succ [Toprol Xl] 12.5 mg PO DAILY 06/08/16 [History] Mirtazapine [Remeron] 15 mg PO HS 06/08/16 [History] Multivitamin [Multivitamins] 1 tab PO DAILY 06/08/16 [History] Isosorbide MONOnitrate (24 HR) [Imdur] 30 mg PO DAILY #30 tab.er.24h 06/10/16 [ Rx] Methylphenidate HCl [Ritalin] 20 mg PO BID 06/27/16 [History] Albuterol Neb [Proventil Neb] 2.5 mg IH Q6HR 30 Days 06/29/16 [Rx] GuaiFENesin ER [Mucinex] 600 mg PO BID #10 tbbp.12hr 06/29/16 [Rx] Alprazolam [Xanax 0.5 MG Tablet] 0.5 mg PO HS PRN #10 tablet 06/30/16 [Rx] Albuterol Sulfate [Proair Respiclick] 2 puff IH Q4H PRN 02/12/17 [History] Fexofenadine HCl [Allergy Relief] 180 mg PO DAILY 02/12/17 [History] Fluticasone Propionate [Flovent Hfa] 1 puff IH BID 02/12/17 [History] HYDROcodone/Acet 7.5/325 mg [[place] 7.5-325 mg] 1 tab PO Q6H PRN 02/12/17 [ History] Oxybutynin Chloride [Ditropan Xl] 5 mg PO HS 02/12/17 [History] Oxygen 1 each .ROUTE AD 02/12/17 [History] Triamcinolone Acet 0.1% CRM [Kenalog] 1 appl TP BID 02/12/17 [History] Umeclidinium [place] [Incruse Ellipta] 1 puff IH DAILY 02/12/17 [History] Allergies Amoxicillin Allergy (Verified 12/17/16 09:08) Rash sulfamethoxazole [From Bactrim] Allergy (Verified 12/17/16 09:08) Hives trimethoprim [From Bactrim] Allergy (Verified 12/17/16 09:08) Hives All Systems: A 10-system review of systems was performed and is negative for pertinent findings except as documented above in the HPI. Physical Examination - Vital Signs Vital Signs: Initial Vital Signs Temp Pulse Resp BP Pulse Ox 97.6 F 99 20 189/127 90 02/12/17 06:35 02/12/17 06:35 02/12/17 06:35 02/12/17 06:35 02/12/17 06:35 - Constitutional General appearance: comfortable - Neurologic Sensorimotor examination: intact Detailed motor examination: grossly full strength in all extremities Detailed sensory examination: intact Reflex and gait examination: intact Reflexes: Biceps: 1+, Triceps: 1+, Brachioradialis: 1+, Patella: 1+, Achilles: 1 + Mental Status Examination: awake, alert, oriented to person, oriented to place, follows commands appropriately, answers questions appropriately, no agnosia, no aphasia, no aproxia Cranial nerve examination: PERRL, EOMI, visual sanchez intact, corneal reflexes brisk symmetrically, sensory to face intact, mastication intact, no facial asymmetry is present, no dysarthria, hearing is intact symmetrically, soft palate elevates bilaterally upon phonation, gag reflex intact, flexes SCM and trapezius muscles symmetrically with full power, tongue protrudes midline, no atrophy or facial fasiculations present Results - Laboratory Findings CBC and BMP: 02/12/17 06:51 02/12/17 06:51 Abnormal lab findings: Abnormal lab results PT 12.9 Seconds (9.4-12.1) H 02/12/17 06:51 APTT 39.8 Seconds (26.0-36.0) H 02/12/17 06:51 ABG pH 7.46 pH Units (7.32-7.45) H 02/12/17 08:05 ABG HCO3 27.7 mEQ/L (21-27) H 02/12/17 08:05 ABG Total CO2 28.9 mEq/L (20-26) H 02/12/17 08:05 ABG Base Excess 3.7 mEq/L (-2.0 to 3.0) H 02/12/17 08:05 Potassium 3.4 mEq/L (3.5-4.5) L 02/12/17 06:51 BUN 21 mg/dL (7-20) H 02/12/17 06:51 BUN/Creatinine Ratio 27 (6-26) H 02/12/17 06:51 Glucose 189 mg/dL (70-99) H 02/12/17 06:51 POC Glucose 223 (58-89) H 02/12/17 19:27 Total Bilirubin 1.3 mg/dL (0.2-1.2) H 02/12/17 06:51 Alkaline Phosphatase 129 Units/L (38-126) H 02/12/17 06:51 Urine Protein >=300 mg/dL (Neg-Trace) H 02/12/17 08:00 Urine Glucose (UA) 100 mg/dL (Normal) H 02/12/17 08:00 Urine Blood Moderate (Negative) H 02/12/17 08:00 Urine Microscopic RBC 5-15 per hpf (0-3) H 02/12/17 08:00 Urine Microscopic WBC 3-5 per hpf (0-3) H 02/12/17 08:00 Ur Squamous Epith Cells Many per lpf (None-Few) H 02/12/17 08:00 Levetiracetam 9 ug/mL (12-46) L 02/12/17 09:25 Consult Discharge Plan - Plan Referrals: Leoncio Joe MD [Primary Care Provider] - 02/16/17 2:00 pm
--- NOTE | 2017-02-13 17:44 | Internal Med Progress Note ---
Date of Encounter: 02/13/17 Time of Encounter: 08:55 - Assessment and plan (1) Altered mental status Current Visit: Yes Status: Acute Assessment and plan: Per son, patient was confused yesterday morning, she could not speak, could not answer questions, and could not get up for a bedside commode. Son reports that she was fine at bedtime the night before. She does take multiple sedating medications which have been stopped. When I saw her this morning, she stated, "I feel slow". Patient did appear to have difficulty navigating the fork to her mouth. She answered questions appropriately, although slowly, and was alert and oriented 3. Urine was negative, Keppra level was low at 9. Drug screen was negative. CAT scan was also negative. Mrs. Quinones was seen by neurology today, they recommend no further testing, continue supportive care. We will monitor patient overnight, most likely discharge in the morning. Qualifiers: Altered mental status type: somnolence Qualified Code(s): R40.0 - Somnolence (2) Seizure disorder Current Visit: No Status: Chronic Assessment and plan: Patient takes Keppra. Drug level is 9, which is low. Will follow up with primary care. (3) Diabetes mellitus Current Visit: Yes Status: Chronic Assessment and plan: Blood sugar today was 150. Accu-Cheks before meals at bedtime Sliding scale insulin Diabetic diet A1c in the morning Qualifiers: Diabetes mellitus type: type 2 Diabetes mellitus complication status: with kidney complications Diabetes mellitus complication detail: with chronic kidney disease Diabetes mellitus retirement insulin use: without termite control servicer use Chronic kidney disease stage: stage 3 (moderate) Qualified Code(s): E11.22 - Type 2 diabetes mellitus with diabetic chronic kidney disease; N18.3 - Chronic kidney disease, stage 3 (moderate) (4) Hypertension Current Visit: No Status: Chronic Qualifiers: Hypertension type: essential hypertension Qualified Code(s): I10 - Essential (primary) hypertension (5) Dyslipidemia Current Visit: No Status: Chronic Assessment and plan: Lipid panel is all within normal limits in June,. Patient does not take a statin. (6) Physical deconditioning Current Visit: No Status: Chronic Assessment and plan: Son reports that patient has fallen at home recently, he also states that she has been having difficulty getting around inside her home and has started using a bedside commode near her bed. Consult physical therapy. (7) CAD (coronary artery disease) Current Visit: No Status: Chronic Assessment and plan: Continue aspirin, Plavix, nitrates, beta camacho Patient has been pain-free. Qualifiers: Coronary Disease-Associated Artery/Lesion type: unspecified vessel or lesion type [place] vs. transplanted heart: [place] heart Associated angina: without angina Qualified Code(s): I25.10 - Atherosclerotic heart disease of [place] coronary artery without angina pectoris - Time Spent With Patient less than 15 minutes - Subjective Interval history: Patient was seen and assessed at about 855 this morning. She was sitting up in bed eating breakfast. She did appear to have difficulty getting the fork to her mouth. Her hand seems steady, it she appeared to be unable to navigate the turn of the fork into her mouth. She was not shaking or spilling food. Patient states, "I feel slow". Patient lives at home alone. Yesterday morning she was confused, she could not speak, she was not answering questions. Son said that she was sitting on her bedside commode in her room with her head down , he attempted to get her up and she was not able to stand. He reports that she was fine at bedtime the night before. In November or December of this year, patient fell at home, she was confused, and could not get up at that time either. Her right leg is discolored from the fall, she says that she is headed Doppler and there is no DVT. Lower extremity venous duplex report from that timeframe does indicate that there was no DVT. She does have palpable pulses bilaterally. Patient has had heart valves replaced at [facility] in the last 5 years. She does have crackles in her bilateral bases of her lungs. She does not have any peripheral edema. - Constitutional Vitals: Temp Pulse Resp BP Pulse Ox 98.0 F 92 16 135/93 98 02/13/17 15:23 02/13/17 15:23 02/13/17 15:23 02/13/17 15:23 02/13/17 15:23 General appearance: Present: cooperative, A&O X 1, mild distress, answers questions appropriately (Answers some questions appropriately) - Head Head exam: Present: normal inspection - Eye Eye exam: Present: normal appearance, PERRL, conjuntiva pink. Absent: nystagmus - ENT ENT exam: Present: mucous membranes moist, normal exam, normal external ear exam - Neck Neck exam general surgery: Present: lymphadenopathy, normal inspection. Absent : tenderness - Respiratory Respiratory exam: Present: decreased breath sounds, rales. Absent: accessory muscle use, respiratory distress, rhonchi, stridor, wheezes, tachypnea - Cardiovascular Cardiovascular exam: Present: RRR, +S1, +S2. Absent: diastolic murmur, systolic murmur - Expanded Cardiovascular Exam Peripheral pulses: 1+: Dorsalis Pedis (L) PM, Dorsalis Pedis (R) PM - GI/Abdominal GI/Abdominal exam: Present: normal bowel sounds, soft. Absent: distended, hepatomegaly, tenderness - Extremities Exam Extremities exam: Present: joint swelling, normal capillary refill, normal inspection, warm, radial pulses palpable and symetrical. Absent: pedal edema, tenderness Additional comments: Patient does have joint swelling to right knee. She says this is normal. - Neurological Exam Neurological exam: Present: alert, oriented X3, strengths equal and symetr throughout. Absent: no focal deficits, facial droop, speech deficit Internal Medicine: Result - Labs CBC & Chem 7: 02/12/17 06:51 02/12/17 06:51 - ABG Interpretation ABG results: ABG ABG pH 7.46 pH Units (7.32-7.45) H 02/12/17 08:05 ABG pCO2 39 mmHg (35-45) 02/12/17 08:05 ABG pO2 89 mmHg (85-104) 02/12/17 08:05 ABG O2 Saturation 97 % (95-98) 02/12/17 08:05 PT/INR, D-dimer PT 12.9 Seconds (9.4-12.1) H 02/12/17 06:51 Consult Discharge Plan - Plan Referrals: Leoncio Joe MD [Primary Care Provider] - 02/16/17 2:00 pm
[2017-02-13] MEDS: Mirtazapine 15 MG TABLET PO SCH (20:16)
[2017-02-14 04:29] LABS: Eosinophils # 0.4 K/mcL (0.0-0.6); Eosinophils % 6.4 %; Hematocrit 36.2 % (35.3-44.9); Hemoglobin 12.6 g/dL (11.5-15.4); Immature Granulocytes % 0.2 % (0-4); Lymphocytes # 0.9 K/mcL (0.6-4.6); Lymphocytes % 15.9 %; Mean Corpuscular HGB Conc 34.8 g/dL (31.6-35.5); Mean Corpuscular Hemoglobin 29.7 pg (28.0-33.3); Mean Corpuscular Volume 85.4 fL (83.0-100.0); Mean Platelet Volume 11.3 fL (9.4-12.4); Monocytes # 0.4 K/mcL (0.0-1.3); Monocytes % 7.3 %; Neutrophils # 3.9 K/mcL (1.6-8.9); Platelet Count 137 K/mcL (140-400); Red Blood Count 4.24 M/mcL (3.82-4.97); Red Cell Distribution Width 14.6 % (11.5-14.5); Segmented Neutrophils % 70.2 %
[2017-02-14 04:43] LABS: BUN/Creatinine Ratio 35 (6-26); Calcium 8.4 mg/dL (8.6-10.8); Carbon Dioxide 28 mEq/L (19-29); Chloride 103 mEq/L (98-109); Glucose 114 mg/dL (70-99); Osmolality,Calculated 298 (280-300); Potassium 3.2 mEq/L (3.5-4.5); Sodium 140 mEq/L (136-145); eGFR For African Americans > 60 (> 60); eGFR For Non-African Americans 56 (> 60)
[2017-02-14 04:51] LABS: Blood Urea Nitrogen 33 mg/dL (7-20)
[2017-02-14] MEDS: Insulin LISPRO 300 UNITS/3 ML VIAL SQ SCH ×2 (07:47→12:25)
[2017-02-14] MEDS: Methylphenidate HCl 10 MG TABLET PO SCH (08:09)
[2017-02-14] MEDS: Metoprolol XL (24 HR) Succ 25 MG TAB.ER.24H PO SCH (08:09)
[2017-02-14] MEDS: Aspirin 81 MG TAB.CHEW PO SCH (08:09)
[2017-02-14] MEDS: levETIRAcetam 250 MG TABLET PO SCH (08:10)
[2017-02-14] MEDS: Loratadine 10 MG TABLET PO SCH (08:10)
[2017-02-14] MEDS: Isosorbide MONOnitrate (24 HR) 30 MG TAB.ER.24H PO SCH (08:10)
[2017-02-14] MEDS: Furosemide 20 MG TABLET PO SCH (08:10)
[2017-02-14] MEDS: Multivit/Ca/Min/Fe/FA 1 TAB TABLET PO SCH (08:10)
[2017-02-14] MEDS: Fluticasone Propionate Nasal 50 MCG/SPRAY BOTTLE NS SCH (08:11)
[2017-02-14 11:14] VITALS: BP 127/83
--- NOTE | 2017-02-14 12:22 | Discharge Summary ---
Date of Encounter: 02/14/17 Time of Encounter: 08:30 - Discharge Diagnosis (1) Altered mental status Priority: Primary Status: Acute Comments: I saw patient initially this morning at about 8:30 AM. She was sitting up in her bed eating her breakfast tray. She seemed to be doing better with the fork and she was yesterday, but did not seem like she was doing as well as she would normally. I asked patient about this and she said that she felt better than she did yesterday and still felt a little bit slow. Her speech was very low and slow again this morning and I told her that I would like to speak with her son. Her son arrived later I spoke with him and patient was sitting up in chair and actually seemed markedly better than she had when I saw her earlier. Her speech seemed less slurred and her son said that she has returned to normal. He does have home health set up for Thursday in their home. He says he denies any questions and that he is going to be able to handle her until that time. He said he would just like to have a little bit extra help. Patient remains neurologically intact her grasps and push/pull against resistance with her legs and feet are strong and equal bilaterally. Patient has Xanax daily at bedtime when necessary, melatonin daily at bedtime when necessary, and Remeron 15 mg daily at bedtime. I will suggest to patient' s son that perhaps not all 3 should be taken each night. He did ask why she was taking so many sleeping medications. Perhaps she is becoming too sedated and should only maybe try the Remeron at bedtime. Qualifiers: Altered mental status type: somnolence Qualified Code(s): R40.0 - Somnolence (2) Seizure disorder Priority: Secondary Status: Chronic Comments: Continue Keppra. (3) Diabetes mellitus Priority: Secondary Status: Chronic Comments: A1c is 4.8. Serum glucose was 114 fasting this morning. Continue normal home regimen and follow-up with primary care physician. Qualifiers: Diabetes mellitus type: type 2 Diabetes mellitus complication status: with kidney complications Diabetes mellitus complication detail: with chronic kidney disease Diabetes mellitus terminal supervisor insulin use: without terminal supervisor use Chronic kidney disease stage: stage 3 (moderate) Qualified Code(s): E11.22 - Type 2 diabetes mellitus with diabetic chronic kidney disease; N18.3 - Chronic kidney disease, stage 3 (moderate) (4) Hypertension Priority: Secondary Status: Chronic Comments: Chronic. Continue home medication. Has been well controlled in inpatient setting. Qualifiers: Hypertension type: essential hypertension Qualified Code(s): I10 - Essential (primary) hypertension (5) Dyslipidemia Priority: Secondary Status: Chronic Comments: Chronic. Continue home medications. (6) Physical deconditioning Priority: Secondary Status: Chronic (7) CAD (coronary artery disease) Priority: Secondary Status: Chronic Comments: Continue aspirin, Plavix, nitrates, beta camacho. Patient has been chest pain free throughout visit Qualifiers: Coronary Disease-Associated Artery/Lesion type: unspecified vessel or lesion type [place] vs. transplanted heart: [place] heart Associated angina: without angina Qualified Code(s): I25.10 - Atherosclerotic heart disease of [place] coronary artery without angina pectoris - Discharge Medications Home Medications: Aspirin 81 mg PO DAILY 06/08/16 [History] Clopidogrel [Plavix] 75 mg PO DAILY 06/08/16 [History] Escitalopram [Lexapro] 20 mg PO HS 06/08/16 [History] Ferrous Sulfate [Iron] 325 mg PO DAILY 06/08/16 [History] Furosemide [Lasix] 20 mg PO DAILY 06/08/16 [History] Lactose-Reduced Food [Ensure Complete] 1 bottle PO BID 06/08/16 [History] LevETIRAcetam [Keppra] 500 mg PO Q12H 06/08/16 [History] Melatonin [Melatin] 3 mg PO HS PRN 06/08/16 [History] Metformin [Glucophage] 500 mg PO BIDWM 06/08/16 [History] Metoprolol XL (24 HR) Succ [Toprol Xl] 12.5 mg PO DAILY 06/08/16 [History] Mirtazapine [Remeron] 15 mg PO HS 06/08/16 [History] Multivitamin [Multivitamins] 1 tab PO DAILY 06/08/16 [History] Isosorbide MONOnitrate (24 HR) [Imdur] 30 mg PO DAILY #30 tab.er.24h 06/10/16 [ Rx] Methylphenidate HCl [Ritalin] 20 mg PO BID 06/27/16 [History] Albuterol Neb [Proventil Neb] 2.5 mg IH Q6HR 30 Days 06/29/16 [Rx] GuaiFENesin ER [Mucinex] 600 mg PO BID #10 tbbp.12hr 06/29/16 [Rx] Alprazolam [Xanax 0.5 MG Tablet] 0.5 mg PO HS PRN #10 tablet 06/30/16 [Rx] Albuterol Sulfate [Proair Respiclick] 2 puff IH Q4H PRN 02/12/17 [History] Fexofenadine HCl [Allergy Relief] 180 mg PO DAILY 02/12/17 [History] Fluticasone Propionate [Flovent Hfa] 1 puff IH BID 02/12/17 [History] HYDROcodone/Acet 7.5/325 mg [[place] 7.5-325 mg] 1 tab PO Q6H PRN 02/12/17 [ History] Oxybutynin Chloride [Ditropan Xl] 5 mg PO HS 02/12/17 [History] Oxygen 1 each .ROUTE AD 02/12/17 [History] Triamcinolone Acet 0.1% CRM [Kenalog] 1 appl TP BID 02/12/17 [History] Umeclidinium [place] [Incruse Ellipta] 1 puff IH DAILY 02/12/17 [History] Allergies/Adverse Reactions: Allergies Amoxicillin Allergy (Verified 12/17/16 09:08) Rash sulfamethoxazole [From Bactrim] Allergy (Verified 12/17/16 09:08) Hives trimethoprim [From Bactrim] Allergy (Verified 12/17/16 09:08) Hives Date of admission: 02/12/17 11:24 Primary care physician: Leoncio Joe MD Consults: 02/12/17 15:31 Consult to [facility] [CONS] Routine Reason for SW Consult: home health 02/13/17 12:03 Consult to Neurology [CONS] Routine Consulting Provider: Neurology [facility] Reason for Consult: increased confusion, sedative medications have been stopped, somnolent Time Notified: 12:04 Call Completed: Yes 02/13/17 17:49 Consult to Occupational Therapy [CONS] Routine Comment: Evaluate, develop and implement POC Consult to Physical Therapy [CONS] Routine Comment: Evaluate, develop and implement POC Discharging clinician: Mely Vu Anticipated date of discharge: 02/14/17 - Patient Status Disposition: Home, Self-Care Condition: Good Functional capacity at discharge: uses cane/walker Overall status at discharge: patient is progressing back to baseline - Discharge Instructions Follow Up With: Leoncio Joe MD [Primary Care Provider] - 02/16/17 2:00 pm Additional Instructions: Please follow-up with primary care physician within the next week to 10 days. Please limit number of sedating medications patient is given at any point during the day, however most specifically at bedtime. Home health will be at your home on Thursday, February 16. Please immediately return to the emergency department for any new or worsening symptoms or any concerns that you may have. - Diet and Activity Activity: ambulate only with your walker, increase activity as tolerated Diet: diabetic diet Interval History: Patient was admitted to the emergency department on February 11 after she was unable to get herself up from the bedside commode in her room. Her son said that he was speaking to her and she was unable to respond or stand up. She says that she was fine at bedtime the night before. Patient had a fall at home approximately 2 months ago and at that time she was confused and could not get up. She was brought to the emergency department at that time and had a Doppler of her right leg due to extreme bruising. There was no DVT found. Jose A leg still remains slightly discolored, however she does have palpable pulses and she denies pain, there is no edema. CT head showed no acute infarct. There is prominence of the ventricles and sulci due to global parenchymal volume loss, as well as chronic microvascular ischemic changes. Mrs. Quinones was evaluated by neurology yesterday and was found to have no neurological problems requiring intervention on their part. It was also felt that this potentially could be related to medication side effects. Patient takes multiple sedating medications at that time such as Xanax, Remeron , melatonin, as well as when necessary narcotic pain medication. When I assessed the patient this morning, she still seemed rather slow, however she was better than yesterday. When I assessed her this afternoon she seemed far more alert, speech was clear, and she was having less difficulty eating. Her sensitivity is okay with taking her home that she is return to baseline. I discussed with the patient attempting to eliminate some of sedating medications at bedtime, and she agreed. She says that she has difficulty falling asleep and staying asleep and does not like to be awake all night. [employer] worker has set up home health for patient. They will be patient home on Thursday. Potassium 3.2 this morning. Replaced with a K rider prior to discharge. Other labs within normal limits. Vital signs have remained stable. Patient is stable for discharge. Hospital course: Ms. Quinones is a 86 year old female - Time Spent with Patient Total time spent providing and/or coordinating discharge services: Less than 30 minutes - Constitutional Vitals: Temp Pulse Resp BP Pulse Ox 97.7 F 88 16 127/83 98 02/14/17 11:09 02/14/17 11:09 02/14/17 11:09 02/14/17 11:09 02/14/17 11:09 General appearance: Present: cooperative, A&O X 1, mild distress, pleasant, no acute distress, answers questions appropriately (Answers some questions appropriately) - Head Head exam: Present: normal inspection - Eye Eye exam: Present: normal appearance, conjuntiva pink. Absent: nystagmus - ENT ENT exam: Present: mucous membranes moist, normal exam, normal external ear exam - Neck Neck exam general surgery: Present: normal inspection. Absent: lymphadenopathy , tenderness - Respiratory Respiratory exam: Present: decreased breath sounds, CTAB. Absent: respiratory distress, stridor, wheezes - Cardiovascular Cardiovascular exam: Present: RRR, +S1, +S2. Absent: diastolic murmur, systolic murmur - Extremities Exam Extremities exam: Present: warm, radial pulses palpable and symetrical. Absent : mottling, pedal edema, tenderness - Neurological Exam Neurological exam: Present: alert, motor sensory deficit, oriented X3, no focal deficits, strengths equal and symetr throughout, speech deficit. Absent: facial droop Additional comments: Speech is much more clear this afternoon that was this morning on initial assessment.
== END 2017-02-14 14:15 | disposition home health service (06) ==
LOC: EMEROO 06:32 → 3BNU 06:32
PROVIDERS: ADMIT Internal Medicine; ATTEND Registered Nurse

== ENCOUNTER 2017-05-04 09:44 | Inpatient (IN) ==
[2017-05-04] MEDS ORDERED: methylPREDNISolone 125 MG/2 ML VIAL IVP ONE (09:54)
[2017-05-04] MEDS ORDERED: Furosemide 40 MG/4 ML VIAL IVP ONE (09:54)
[2017-05-04] MEDS ORDERED: Ipratropium/Albuterol Neb 3 ML IH ONE (09:54)
[2017-05-04 10:16] LABS: Eosinophils # 0.2 K/mcL (0.0-0.6); Eosinophils % 4.1 %; Hematocrit 33.3 % (35.3-44.9); Hemoglobin 11.5 g/dL (11.5-15.4); Immature Granulocytes % 0.2 % (0-4); Lymphocytes # 0.6 K/mcL (0.6-4.6); Lymphocytes % 11.5 %; Mean Corpuscular HGB Conc 34.5 g/dL (31.6-35.5); Mean Corpuscular Hemoglobin 30.6 pg (28.0-33.3); Mean Corpuscular Volume 88.6 fL (83.0-100.0); Monocytes # 0.3 K/mcL (0.0-1.3); Monocytes % 5.7 %; Neutrophils # 3.8 K/mcL (1.6-8.9); Platelet Count 142 K/mcL (140-400); Red Blood Count 3.76 M/mcL (3.82-4.97); Red Cell Distribution Width 14.9 % (11.5-14.5); Segmented Neutrophils % 78.5 %
[2017-05-04 10:21] LABS: INR 1.2; Prothrombin Time 12.9 Seconds (9.4-12.1)
[2017-05-04 10:24] LABS: Activated Partial Thrombo Time 44.9 Seconds (26.0-36.0)
[2017-05-04 10:34] LABS: BUN/Creatinine Ratio 28 (6-26); Blood Urea Nitrogen 21 mg/dL (7-20); Calcium 8.9 mg/dL (8.6-10.8); Carbon Dioxide 30 mEq/L (19-29); Chloride 102 mEq/L (98-109); Glucose 142 mg/dL (70-99); Osmolality,Calculated 293 (280-300); Potassium 3.6 mEq/L (3.5-4.5); Sodium 139 mEq/L (136-145); eGFR For African Americans > 60 (> 60); eGFR For Non-African Americans > 60 (> 60)
[2017-05-04] MEDS ORDERED: Levofloxacin 750 MG/150 ML 750 MG/150 ML BAG IVPB ONE (11:07)
--- NOTE | 2017-05-04 11:50 | Electrocardiograph Report ---
[facility] Test Date: 2017-05-04 Pat Name: Chanel Quinones Department: 104 Room: Gender: F Automation Clerk: BP : 1930 Requested By: Sean White Order Number: [id number] Reading MD: Vaibhav Antoine MD Measurements Intervals [place] Rate: 96 P: 71 NM: 201 QRS: -64 QRSD: 145 T: 79 QT: 392 QTc: 445 Interpretive Statements SINUS RHYTHM MARKED LEFT AXIS DEVIATION LEFT BUNDLE BRANCH BLOCK, Present in January, not new Electronically Signed On 05-04-2017 11:49:06 EDT by Vaibhav Antoine MD
--- NOTE | 2017-05-04 12:52 | Emergency Department Note ---
Disposition Clinical Impression: Community acquired pneumonia, Difficulty breathing, Pleural effusion Dyspnea Qualifiers: Dyspnea type: orthopnea Qualified Code(s): R06.01 - Orthopnea Disposition: Admitted As Inpatient Condition: Good Referrals: NO,PCP [Primary Care Provider] - Forms: ED Satisfaction Letter Time of Disposition: 13:02 SOB HPI - General Chief Complaint: ED Shortness of Breath/Dyspnea Stated Complaint: STAN Time Seen by Provider: 05/04/17 09:54 Source: EMS Mode of arrival: EMS Limitations: no limitations Nursing Notes Reviewed: Yes Vital Signs Reviewed: Yes - History of Present Illness Patient presents from home with complaint of shortness of breath. Onset this morning. Patient lives at home with her son. He is a primary care provider for. We will last several days she has had increasing shortness of breath and a nonproductive cough. She denies any chest pain fevers chills nausea vomiting or diarrhea. Denies headache vision changes at this time. She does have short- term memory issues secondary to her previous stroke. EMS arrived at her house and she is short of breath and hypoxic she had taken an albuterol treatment at home without any relief. They provided her with a breathing treatment in transit and she felt much better on arrival. No acute abnormalities based on vital signs on arrival here Pt Subjective Complaint: shortness of breath Onset (ago): Just TWILL CUTTER Severity: moderate Consistency/Duration: constant Improves with: oxygen, bronchodilators, upright position Worsens with: lying flat, coughing Known history of: congestive heart failure Associated symptoms: Reports: denies other symptoms, cough, sputum production, orthopnea. Denies: chest pain, pain with inspiration, fever, wheezing, lower extremity pain Treatment prior to arrival: oxygen, bronchodilator Cough present: Yes Cough Description: Involuntary Cough Frequency: Intermittent Sputum production: Yes Sputum Amount: Scant Sputum Color: Clear - Related Data Home oxygen amount: 2 liters Home Medications Medication Instructions Recorded Confirmed Aspirin 81 mg PO DAILY 06/08/16 02/12/17 Clopidogrel [Plavix] 75 mg PO DAILY 06/08/16 02/12/17 Escitalopram [Lexapro] 20 mg PO HS 06/08/16 02/12/17 Ferrous Sulfate [Iron] 325 mg PO DAILY 06/08/16 02/12/17 Furosemide [Lasix] 20 mg PO DAILY 06/08/16 02/12/17 Lactose-Reduced Food [Ensure 1 bottle PO BID 06/08/16 02/12/17 Complete] LevETIRAcetam [Keppra] 500 mg PO Q12H 06/08/16 02/12/17 Melatonin [Melatin] 3 mg PO HS PRN 06/08/16 02/12/17 Metoprolol XL (24 HR) Succ [Toprol 12.5 mg PO DAILY 06/08/16 02/12/17 Xl] Mirtazapine [Remeron] 15 mg PO HS 06/08/16 02/12/17 Multivitamin [Multivitamins] 1 tab PO DAILY 06/08/16 02/12/17 metFORMIN [Glucophage] 500 mg PO BIDWM 06/08/16 02/12/17 Methylphenidate HCl [Ritalin] 20 mg PO BID 06/27/16 02/12/17 Albuterol Sulfate [Proair 2 puff IH Q4H PRN 02/12/17 02/12/17 Respiclick] Fexofenadine HCl [Allergy Relief] 180 mg PO DAILY 02/12/17 02/12/17 Fluticasone Propionate [Flovent 1 puff IH BID 02/12/17 02/12/17 Hfa] HYDROcodone/Acet 7.5/325 mg [[place] 1 tab PO Q6H PRN 02/12/17 02/12/17 7.5-325 mg] Oxybutynin Chloride [Ditropan Xl] 5 mg PO HS 02/12/17 02/12/17 Oxygen 1 each .ROUTE AD 02/12/17 02/12/17 Triamcinolone Acet 0.1% CRM 1 appl TP BID 02/12/17 02/12/17 [Kenalog] Umeclidinium [place] [Incruse 1 puff IH DAILY 02/12/17 02/12/17 Ellipta] Previous Rx's Medication Instructions Recorded Isosorbide MONOnitrate (24 HR) 30 mg PO DAILY #30 tab.er.24h 06/10/16 [Imdur] Albuterol Neb [Proventil Neb] 2.5 mg IH Q6HR 30 Days 06/29/16 GuaiFENesin ER [Mucinex] 600 mg PO BID #10 tbbp.12hr 06/29/16 ALPRAZolam [Xanax 0.5 MG Tablet] 0.5 mg PO HS PRN #10 tablet 06/30/16 Allergies Allergy/AdvReac Type Severity Reaction Status Date / Time Amoxicillin Allergy Rash Verified 12/17/16 09:08 sulfamethoxazole Allergy Hives Verified 12/17/16 09:08 [From Bactrim] trimethoprim [From Bactrim] Allergy Hives Verified 12/17/16 09:08 All systems ED: reviewed and negative except as stated. Constitutional: Denies: fever, chills Cardiovascular: Reports: dyspnea on exertion, orthopnea. Denies: chest pain, palpitations, edema Respiratory: Reports: cough, dyspnea, sputum production. Denies: wheezes, hemoptysis Gastrointestinal: Denies: abdominal pain, nausea, vomiting, diarrhea Genitourinary: Denies: dysuria, frequency Musculoskeletal: Denies: back pain, neck pain Neurological: Denies: headache Endocrine: Denies: fatigue Past Medical History - Past Medical History Attestation: Yes The following information was validated with the patient. Source: patient Medical history: Reports: arthritis, cardiomyopathy, CHF, coronary artery disease, CVA, dementia, diabetes, GERD, hyperlipidemia, hypertension, osteoporosis, seizures, syncope, TIA, valvular heart disease, other Surgical history: Reports: orthopedic, other, other (Aortic valve relacement 2000) Psychiatric history: Reports: anxiety, depression - Social History Smoking Status: Never smoker Smokeless Tobacco Status: No Alcohol use: Reports: none Drug use: Reports: none Physical Exam - General Limitations: no limitations General appearance: alert - Head Head exam: atraumatic, normocephalic, normal inspection - Neck Neck exam: Present: normal inspection, full ROM, trachea midline - Chest Chest inspection: Present: normal inspection, symmetric chest wall rise - Respiratory Respiratory exam: Present: normal lung sounds bilaterally, accessory muscle use. Absent: respiratory distress, wheezes, stridor - Cardiovascular Cardiovascular exam: Present: regular rate, normal rhythm, normal heart sounds - Abdominal Exam Abdominal exam: Present: soft, Non-Tender, normal bowel sounds. Absent: tenderness, distention, guarding, rebound, rigidity, Eugene's sign, Rovsing's sign, tenderness at McBurney's Point - Extremities Exam Extremities exam: Present: normal inspection, full ROM, normal capillary refill. Absent: tenderness, calf tenderness - Back Exam Back exam: Present: normal inspection, full ROM. Absent: CVA tenderness (R), CVA tenderness (L) - Neurological Exam Neurological exam: Present: alert, oriented X3, CN II-XII intact, normal gait - Skin Skin exam: Present: warm, dry, intact, normal color Course Course Narrative: Patient seen and examined the time of arrival. See history of present illness. 86-year-old female presenting by EMS today for evaluation of shortness of breath. During transport EMS was concerned about abnormal cardiac rhythm. They transported EKGs at that time. I reviewed these personally and compared to previous EKGs from 1 year ago and 3 months ago. Morphology intervals in presentation appear to be stable with no acute signs of ST segment elevation. On presentation here patient denies chest pain and has not had chest pain that the entire evaluation and EMS transport. Patient presented here for shortness of breath. Vital signs reviewed and are stable borderline hypoxic but is on 2 L of oxygen. She uses 2 L of oxygen at night and not during the day. Patient denies any recent trauma injuries or illnesses. She was seen in the hospital and treated several weeks ago for spine related injuries and fracture secondary to fall from the son described after he arrived. My physical exam on presentation patient is sitting upright in the bed speaking in full sentences answering questions appropriately. She shows no acute signs of distress her lungs are clear heart is regular abdomen is soft nontender nondistended with no guarding or rigidity. She moves all 4 extremities without difficulty. There is no signs of pitting edema in the lower extremities. Based on the complaint of shortness of breath as well as the cardiac evaluation completed by myself at the bedside patient will have breathing treatments chest x-ray fluids as needed nausea medication first dose of IV antibiotics with protection for possible pneumonia as well as urinalysis and basic chemistry panels. Disposition pending workup and treatment course. Patient will most likely need admission to hospital for shortness of breath and hypoxia prior to arrival here in the emergency room. - Reevaluation(s) Reevaluation #1: Patient found to have pleural effusion as well as possible consolidation consistent with pneumonia. She has no elevation in her white blood cell count at this time. Patient had IV antibiotics obtained and collected. flavor room worker has also discussed home care and symptoms with the family. They are working on placement outside facility for definitive management. Patient this time will be admitted to the hospitalist for treatment of what appears to be pneumonia shortness of breath and hypoxia. Family as well as the patient comfortable with this plan. I discussed the patient as well as medical intervention with hospitalist Dr. reyes. We reviewed in detail the medical evaluation management and evaluation in the emergency room. No other recommendations for her at this time. Admission process to be completed. We will continue to monitor here in the emergency room as patient is in [facility] for definitive management Time: 13:01 Vital Signs Temperature 97.8 F 05/04/17 09:46 Pulse Rate 98 05/04/17 09:46 Respiratory Rate 20 05/04/17 09:46 Blood Pressure 140/71 05/04/17 09:46 O2 Sat by Pulse Oximetry 90 05/04/17 09:46 Temperature 97.8 F 05/04/17 09:46 Pulse Rate 94 05/04/17 11:39 Respiratory Rate 18 05/04/17 11:39 Blood Pressure 136/72 05/04/17 11:39 O2 Sat by Pulse Oximetry 94 05/04/17 11:39 Oxygen Delivery Oxygen Delivery Nasal Cannula Shortness of Breath/Dyspnea - [facility] Narrative Medical decision making narrative: Pneumonia, pleural effusion, shortness of breath, hypoxia, fluid overload - Medical Records Medical records reviewed: Yes I reviewed the patient's medical records. - Lab Data Lab results reviewed: Yes I reviewed the patient's lab results. Result diagrams: 05/04/17 10:07 05/04/17 10:07 Lab Results 05/04/17 05/04/17 05/04/17 Range/Units 10:07 10:07 10:07 WBC 4.9 (4.3-11.1) K/mcL RBC 3.76 L (3.82-4.97) M/mcL Hgb 11.5 (11.5-15.4) g/dL Hct 33.3 L (35.3-44.9) % MCV 88.6 (83.0-100.0) fL MCH 30.6 (28.0-33.3) pg MCHC 34.5 (31.6-35.5) g/dL RDW 14.9 H (11.5-14.5) % Plt Count 142 (140-400) K/mcL MPV 10.0 (9.4-12.4) fL Immature Gran % 0.2 (0-4) % Seg Neutrophils % 78.5 % Lymphocytes % 11.5 % Monocytes % 5.7 % Eosinophils % 4.1 % Basophils % 0.0 % Neutrophils # 3.8 (1.6-8.9) K/mcL Lymphocytes # 0.6 (0.6-4.6) K/mcL Monocytes # 0.3 (0.0-1.3) K/mcL Eosinophils # 0.2 (0.0-0.6) K/mcL Basophils # 0.0 (0.0-0.2) K/mcL PT 12.9 H (9.4-12.1) Seconds INR 1.2 APTT 44.9 H (26.0-36.0) Seconds Sodium 139 (136-145) mEq/L Potassium 3.6 (3.5-4.5) mEq/L Chloride 102 (98-109) mEq/L Carbon Dioxide 30 H (19-29) mEq/L BUN 21 H (7-20) mg/dL Creatinine 0.75 (0.57-1.11) mg/dL Est GFR ( Amer) > 60 (> 60) Est GFR (Non-Af Amer) > 60 (> 60) BUN/Creatinine Ratio 28 H (6-26) Glucose 142 H (70-99) mg/dL Calculated Osmolality 293 (280-300) Calcium 8.9 (8.6-10.8) mg/dL Troponin I (0-0.03) ng/mL B-Natriuretic Peptide (0-100) pg/mL 05/04/17 05/04/17 Range/Units 10:07 10:07 WBC (4.3-11.1) K/mcL RBC (3.82-4.97) M/mcL Hgb (11.5-15.4) g/dL Hct (35.3-44.9) % MCV (83.0-100.0) fL MCH (28.0-33.3) pg MCHC (31.6-35.5) g/dL RDW (11.5-14.5) % Plt Count (140-400) K/mcL MPV (9.4-12.4) fL Immature Gran % (0-4) % Seg Neutrophils % % Lymphocytes % % Monocytes % % Eosinophils % % Basophils % % Neutrophils # (1.6-8.9) K/mcL Lymphocytes # (0.6-4.6) K/mcL Monocytes # (0.0-1.3) K/mcL Eosinophils # (0.0-0.6) K/mcL Basophils # (0.0-0.2) K/mcL PT (9.4-12.1) Seconds INR APTT (26.0-36.0) Seconds Sodium (136-145) mEq/L Potassium (3.5-4.5) mEq/L Chloride (98-109) mEq/L Carbon Dioxide (19-29) mEq/L BUN (7-20) mg/dL Creatinine (0.57-1.11) mg/dL Est GFR ( Amer) (> 60) Est GFR (Non-Af Amer) (> 60) BUN/Creatinine Ratio (6-26) Glucose (70-99) mg/dL Calculated Osmolality (280-300) Calcium (8.6-10.8) mg/dL Troponin I 0.00 (0-0.03) ng/mL B-Natriuretic Peptide 82 (0-100) pg/mL - Radiology Data Radiology results reviewed: Yes I reviewed the patient's radiology results. Chest x-ray shows pleural effusion with possible consolidation - EKG Data EKG attestation: Yes I reviewed and interpreted this EKG. EKG shows normal: Reports: sinus rhythm, axis, ST-T waves Rate: Reports: normal Rhythm: Reports: NSR [place]/QRS: Reports: LBBB Voltage: Reports: increased voltage throughout When compared to previous EKG there are: no significant changes Interpretation: Reports: no acute changes, unchanged when compared to prior tracing (date) (From January and one year ago) Critical Care Time Critical Care Time: Yes Total Critical Care Time: 45 Attestation: Critical care performed: Time is exclusive of separately billable procedures. Time includes: direct patient care, patient reassessment, coordination of patient care, interpretation of data (laboratory data, radiology data, and respiratory data), review of patient's medical records, medical consultation and documentation of patient care. Procedures included in critical care time: Procedures excluded from critical care time:
--- NOTE | 2017-05-04 13:48 | Internal Med History&Physical ---
Date of Encounter: 05/04/17 Time of Encounter: 14:30 Assessment and Plan (1) HCAP (healthcare-associated pneumonia) Current visit: Yes Status: Suspected 1 patient's pacing increasing shortness of breath as well as nonproductive cough. No fevers or chills no smokers a ptosis at this time. She was slightly hypoxic upon presentation with SPO2 of 90 2L. She was given bronchodilators as well as oxygen continue oxygen titrated maintaining SPO2 greater than 92% 2 blood cultures sent will obtain sputum culture 3 patient has had recent hospitalization in the past month we will continue with Levaquin for now we will just to sensitivity 4 bronchodilators (2) Pleural effusion Current visit: Yes Status: Acute 1 patient has small to moderate pleural effusion on x-ray. We will continue with Lasix 20 mg twice a day 2 continue with oxygen (3) Diastolic CHF due to valvular disease Current visit: No Status: Chronic 1 history of diastolic failure EF 65% we will continue with Lasix 2 low sodium diet (4) CVA, old, cognitive deficits Current visit: No Status: Chronic 1 patient does have some issues with short-term memory patient high risk for falls we will place on fall precautions 2 continue with aspirin and Plavix and statin (5) Seizure disorder Current visit: No Status: Chronic 1 history of seizures we will continue with Keppra-seizure precautions (6) Diabetes mellitus Current visit: No Status: Chronic 1 we will hold oral antidiabetic for now Accu-Cheks before meals at bedtime with slight scale insulin 2 diabetic diet Qualifiers: Diabetes mellitus type: type 2 Diabetes mellitus complication status: without complication Diabetes mellitus shelter insulin use: without intermodal dispatcher use Qualified Code(s): E11.9 - Type 2 diabetes mellitus without complications (7) Physical deconditioning Current visit: No Status: Chronic 1 patient who had recent fall-we will consult PT (8) COPD (chronic obstructive pulmonary disease) Current visit: No Status: Chronic 1 continue with oxygen and bronchodilators Qualifiers: COPD type: unspecified COPD Qualified Code(s): J44.9 - Chronic obstructive pulmonary disease, unspecified (9) DVT prophylaxis Current visit: Yes Status: Acute SCD Internal Medicine - H&P: HPI Chief complaint: sob Admitted From: Emergency Dept Plans for Post Hospital Care: Home History of present illness: Ms. Quinones is a 86 year old female past medical history of hemorrhagic stroke 4 years ago seizure disorder TAVR bioprosthetic 2014 diabetes hypertension dementia and anxiety, oxygen use only at night. This information obtained from records due to patient's cognitive state, she has some short-term memory issues secondary to her previous stroke Patient had a recent fall around the first of this month and was transferred to [facility] she sustained a nondisplaced fracture of C7 C5. She resides with her son who is her primary care provider. Patient has been experiencing increasing shortness of breath on exertion and nonproductive cough. She denies any fevers chills nausea vomiting diarrhea abdominal pain or chest pain.. This a.m. she was short of breath had taken some albuterol treatments without any relief EMS was called and patient was transported to ER for evaluation. According to ER records upon presentation patient's vitals were stable she was slightly hypoxic on 2 L of oxygen. Chest x -ray was obtained which did demonstrate pleural effusion as well as possible consolidation consistent with pneumonia. Lab work did not reveal any leukocytosis and was basically unremarkable. She has been admitted for further workup and evaluation. Presently patient is alert she is oriented to name and place she does admit to history of short-term memory loss. She follows simple commands, cranial nerves II through XII are intact. Noted she has areas of bruising from her neck down her right arm and left hip at various stages of healing. He does admit to a. recent fall, as outlined above. Her lung sounds are clear and slightly diminished heart sounds S1 and S2 with systolic murmur abdomen soft nontender no pedal edema noted. She does not appear to be any respiratory distress and denies any chest pain or soreness of breath. She is hemodynamically stable with time. I reviewed this case with Dr Stokes who agrees with plan. Past Med Surg Social Fam HX - Past Medical History Medical history: arthritis, cardiomyopathy, CHF, coronary artery disease, CVA, dementia, diabetes, GERD, hyperlipidemia, hypertension, osteoporosis, seizures, syncope, TIA, valvular heart disease, other Psychiatric history: anxiety, depression - Past Surgical History Surgical History: orthopedic, other, other (Aortic valve relacement 2000) - Social History Smoking Status: Never smoker Smokeless Tobacco Status: No Alcohol use: none Drug use: none - Family History Mother Living Status: Hx Family Cardiac Disorders: Yes Hx Family Respiratory Disorders: No Hx Family Cancer: No Hx Family GI Disorders: No Hx Family Endocrine Disorder: No Internal Medicine - H&P: Meds Aspirin 81 mg PO DAILY 06/08/16 [History] Clopidogrel [Plavix] 75 mg PO DAILY 06/08/16 [History] Escitalopram [Lexapro] 20 mg PO HS 06/08/16 [History] Ferrous Sulfate [Iron] 325 mg PO DAILY 06/08/16 [History] Furosemide [Lasix] 20 mg PO DAILY 06/08/16 [History] Lactose-Reduced Food [Ensure Complete] 1 bottle PO BID 06/08/16 [History] LevETIRAcetam [Keppra] 500 mg PO Q12H 06/08/16 [History] Melatonin [Melatin] 3 mg PO HS PRN 06/08/16 [History] Metoprolol XL (24 HR) Succ [Toprol Xl] 12.5 mg PO DAILY 06/08/16 [History] Mirtazapine [Remeron] 15 mg PO HS 06/08/16 [History] Multivitamin [Multivitamins] 1 tab PO DAILY 06/08/16 [History] metFORMIN [Glucophage] 500 mg PO BIDWM 06/08/16 [History] Isosorbide MONOnitrate (24 HR) [Imdur] 30 mg PO DAILY #30 tab.er.24h 06/10/16 [ Rx] Methylphenidate HCl [Ritalin] 20 mg PO BID 06/27/16 [History] Albuterol Neb [Proventil Neb] 2.5 mg IH Q6HR 30 Days 06/29/16 [Rx] GuaiFENesin ER [Mucinex] 600 mg PO BID #10 tbbp.12hr 06/29/16 [Rx] ALPRAZolam [Xanax 0.5 MG Tablet] 0.5 mg PO HS PRN #10 tablet 06/30/16 [Rx] Albuterol Sulfate [Proair Respiclick] 2 puff IH Q4H PRN 02/12/17 [History] Fexofenadine HCl [Allergy Relief] 180 mg PO DAILY 02/12/17 [History] Fluticasone Propionate [Flovent Hfa] 1 puff IH BID 02/12/17 [History] HYDROcodone/Acet 7.5/325 mg [[place] 7.5-325 mg] 1 tab PO Q6H PRN 02/12/17 [ History] Oxybutynin Chloride [Ditropan Xl] 5 mg PO HS 02/12/17 [History] Oxygen 2 l NS AD 02/12/17 [History] Triamcinolone Acet 0.1% CRM [Kenalog] 1 appl TP BID 02/12/17 [History] Umeclidinium [place] [Incruse Ellipta] 1 puff IH DAILY 02/12/17 [History] Allergies Amoxicillin Allergy (Verified 12/17/16 09:08) Rash sulfamethoxazole [From Bactrim] Allergy (Verified 12/17/16 09:08) Hives trimethoprim [From Bactrim] Allergy (Verified 12/17/16 09:08) Hives ROS unobtainable: due to mental status All Systems PM: A 10-system review of systems was performed and is negative for pertinent findings except as documented above in the HPI. - Constitutional Vitals: Temp Pulse Resp BP Pulse Ox 97.8 F 94 18 134/84 94 05/04/17 09:46 05/04/17 11:39 05/04/17 13:26 05/04/17 13:26 05/04/17 11:39 General appearance: Present: A&O X 2, pleasant - Head Head exam: Present: atraumatic, normocephalic - Eye Eye exam: Present: PERRL, conjuntiva pink, sclera anicteric Pupils: Present: PERRL - Neck Neck exam general surgery: Present: supple, trachea midline. Absent: lymphadenopathy - Respiratory Respiratory exam: Present: decreased breath sounds, CTAB. Absent: accessory muscle use, rales, rhonchi, wheezes - Cardiovascular Cardiovascular exam: Present: RRR, +S1, +S2. Absent: diastolic murmur, gallop, rubs, systolic murmur - GI/Abdominal GI/Abdominal exam: Present: normal bowel sounds, soft, no peritoneal signs. Absent: distended, tenderness - Extremities Exam Extremities exam: Present: warm, radial pulses palpable and symetrical. Absent : calf tenderness, cyanotic, pedal edema - Neurological Exam Neurological exam: Present: CN II-XII intact, no focal deficits. Absent: pronater drift, facial droop, speech deficit - Skin Skin exam: Present: dry, intact Internal Med - H&P Results - Labs CBC & Chem 7: 05/04/17 10:07 05/04/17 10:07 - EKG Data EKG comments: 05/04/17 15:34 Sinus rhythm with left axis deviation and left bundle branch block which was present in previous EKG - Diagnostic Studies Chest x-ray Additional comments: Chest X-Ray 05/04/17 09:55 IMPRESSION: 1. Small to moderate size left pleural effusion, increased in size from prior study. Left basilar atelectasis/infiltrate. D/ / Timothy Hercules MD / Timothy Hercules MD Interpreting Provider: Timothy Hercules MD
[2017-05-04] MEDS ORDERED: Naloxone 0.4 MG/ML INJ IVP PRN (14:29)
[2017-05-04] MEDS ORDERED: Melatonin 3 MG TABLET PO PRN (14:37)
[2017-05-04] MEDS ORDERED: Albuterol 2.5 MG/3 ML NEBULIZER IH PRN (14:37)
[2017-05-04] MEDS ORDERED: D5% in Water 1,000 ML IVC PRN (14:40)
[2017-05-04] MEDS ORDERED: Dextrose Gel 15 GM PO PRN ×2 (14:40)
[2017-05-04] MEDS ORDERED: *HR* Dextrose 50 % in Water (Syg) 50 ML SYRINGE IVP PRN (14:40)
[2017-05-04] MEDS ORDERED: *HR* HYDROcodone/Acet 5/325 mg TABLET PO PRN (14:41)
[2017-05-04 16:02] LABS: Bilirubin,Urine Negative (Negative); Blood,Urine Negative (Negative); Clarity,Urine Clear (Clear); Color,Urine Yellow (Yellow); Glucose,Urine (UA) Normal (Normal); Ketones,Urine Negative (Negative); Leukocyte Esterase,Urine Negative (Negative); Nitrite,Urine Negative (Negative); Protein,Urine Negative (Neg-Trace); Urobilinogen,Urine Normal (Normal)
[2017-05-04] MEDS: Ipratropium/Albuterol Neb 3 ML IH SCH ×2 (16:10→22:19)
[2017-05-04] MEDS: levETIRAcetam 250 MG TABLET PO SCH (18:25)
[2017-05-04] MEDS: Insulin LISPRO 300 UNITS/3 ML VIAL SQ SCH ×2 (18:26→22:24)
[2017-05-04] MEDS ORDERED: METHYLPHENIDATE HCL 20 MG PO SCH (21:00)
[2017-05-04] MEDS: Beclomethasone 80mcg MDI IH SCH (22:19)
[2017-05-04] MEDS: Mirtazapine 15 MG TABLET PO SCH (22:23)
[2017-05-05] MEDS: ALPRAZolam 0.5 MG TABLET PO PRN ×2 (00:37→22:58)
[2017-05-05] MEDS: levETIRAcetam 250 MG TABLET PO SCH ×2 (03:36→12:35)
[2017-05-05] MEDS: Ipratropium/Albuterol Neb 3 ML IH SCH ×4 (04:20→22:29)
[2017-05-05 06:50] LABS: Eosinophils # 0.1 K/mcL (0.0-0.6); Eosinophils % 2.4 %; Hematocrit 30.7 % (35.3-44.9); Hemoglobin 10.4 g/dL (11.5-15.4); Immature Granulocytes % 0.2 % (0-4); Lymphocytes # 0.4 K/mcL (0.6-4.6); Lymphocytes % 9.5 %; Mean Corpuscular HGB Conc 33.9 g/dL (31.6-35.5); Mean Corpuscular Hemoglobin 29.9 pg (28.0-33.3); Mean Corpuscular Volume 88.2 fL (83.0-100.0); Mean Platelet Volume 10.3 fL (9.4-12.4); Monocytes # 0.3 K/mcL (0.0-1.3); Monocytes % 6.2 %; Neutrophils # 3.7 K/mcL (1.6-8.9); Platelet Count 143 K/mcL (140-400); Red Blood Count 3.48 M/mcL (3.82-4.97); Red Cell Distribution Width 14.8 % (11.5-14.5); Segmented Neutrophils % 81.7 %
[2017-05-05 06:56] LABS: BUN/Creatinine Ratio 31 (6-26); Blood Urea Nitrogen 24 mg/dL (7-20); Carbon Dioxide 30 mEq/L (19-29); Chloride 102 mEq/L (98-109); Glucose 120 mg/dL (70-99); Magnesium 1.9 mg/dL (1.6-2.6); Osmolality,Calculated 293 (280-300); Potassium 3.5 mEq/L (3.5-4.5); Sodium 139 mEq/L (136-145); eGFR For African Americans > 60 (> 60); eGFR For Non-African Americans > 60 (> 60)
[2017-05-05] MEDS: Furosemide 20 MG/2 ML VIAL IVP SCH ×2 (08:30→16:42)
[2017-05-05] MEDS ORDERED: Levofloxacin 750 MG/150 ML 750 MG/150 ML BAG IVPB SCH (09:00)
[2017-05-05] MEDS ORDERED: Furosemide 40 MG/4 ML VIAL IVP SCH (09:00)
[2017-05-05] MEDS ORDERED: Umeclidinium Bromide [Incruse Ellipta] 1 PUFF IH SCH (09:00)
[2017-05-05] MEDS: Isosorbide MONOnitrate (24 HR) 30 MG TAB.ER.24H PO SCH (10:01)
[2017-05-05] MEDS: Aspirin 81 MG TAB.CHEW PO SCH (10:02)
[2017-05-05] MEDS: Multivit/Ca/Min/Fe/FA 1 TAB TABLET PO SCH (10:02)
[2017-05-05] MEDS: Metoprolol XL (24 HR) Succ 25 MG TAB.ER.24H PO SCH (10:02)
[2017-05-05] MEDS: Loratadine 10 MG TABLET PO SCH (10:02)
[2017-05-05] MEDS: Insulin LISPRO 300 UNITS/3 ML VIAL SQ SCH ×4 (10:03→20:08)
[2017-05-05] MEDS: Beclomethasone 80mcg MDI IH SCH ×2 (11:18→22:29)
[2017-05-05] MEDS ORDERED: Vancomycin 1,000 MG in D5% in Water 250 ML IVPB SCH (11:45)
--- NOTE | 2017-05-05 11:48 | Internal Med Progress Note ---
Date of Encounter: 05/05/17 Time of Encounter: 11:48 - Assessment and plan (1) HCAP (healthcare-associated pneumonia) Current Visit: Yes Status: Suspected Assessment and plan: Given recent hospitalization and persistent increased O2 demand, will add Vancomycin to the regimen Pt reports of only using oxygen at bedtime at home continue vancomycin and levaquin O2 supplementation monitor O2 saturation f/u blood cultures will closely monitor PT/OT eval requested. Pt in agreement to going to rehab facility if needed out of bed to chair and advance activity as tolerated (2) COPD (chronic obstructive pulmonary disease) Current Visit: No Status: Chronic Assessment and plan: continue O2 supplementation and bronchodilator therapy Qualifiers: COPD type: unspecified COPD Qualified Code(s): J44.9 - Chronic obstructive pulmonary disease, unspecified (3) CVA, old, cognitive deficits Current Visit: No Status: Chronic Assessment and plan: ocntinue asa, plavix, statin (4) Diabetes mellitus Current Visit: No Status: Chronic Assessment and plan: will repeat HbA1C continue SS insulin algorithm monitor FS and BG Qualifiers: Diabetes mellitus type: type 2 Diabetes mellitus complication status: without complication Diabetes mellitus intermodal dispatcher insulin use: without penitentiary use Qualified Code(s): E11.9 - Type 2 diabetes mellitus without complications (5) Diastolic CHF due to valvular disease Current Visit: No Status: Chronic Assessment and plan: continue diuretic therapy monitor I/Os, fluid restriction diet (6) DVT prophylaxis Current Visit: Yes Status: Acute Assessment and plan: heparin SQ (7) Hypertension Current Visit: No Status: Chronic Assessment and plan: BP within acceptable range continue home medications added Hydralazine 10mg IV q6h prn SBP>150 monitor BP closely Qualifiers: Hypertension type: essential hypertension Qualified Code(s): I10 - Essential (primary) hypertension (8) Pleural effusion Current Visit: Yes Status: Acute Assessment and plan: likely secondary to PNA will continue to treat PNA and continue IV diuresis (9) Seizure disorder Current Visit: No Status: Chronic Assessment and plan: continue home medications - Subjective Interval history: Patient seen and examined with son present at bedside. Patient reports of feeling better compared to previous day however is very frail appearing. She recently sustained C-spine fracture s/p fall and was discharged to home with home health. At this time she is saturating well on nasal cannula. No overnight issues were reported. - Constitutional Vitals: Temp Pulse Resp BP Pulse Ox 98.2 F 83 16 134/65 96 05/05/17 11:07 05/05/17 11:07 05/05/17 11:20 05/05/17 11:07 05/05/17 11:20 General appearance: Present: A&O X 2, pleasant, no acute distress - Head Head exam: Present: atraumatic, normocephalic - Eye Eye exam: Present: conjuntiva pink, sclera anicteric - Respiratory Respiratory exam: Present: decreased breath sounds. Absent: respiratory distress, wheezes - Cardiovascular Cardiovascular exam: Present: RRR, +S1, +S2. Absent: gallop, rubs, systolic murmur - GI/Abdominal GI/Abdominal exam: Present: normal bowel sounds, soft, no peritoneal signs. Absent: distended, tenderness - Extremities Exam Extremities exam: Present: warm, radial pulses palpable and symetrical. Absent : calf tenderness - Neurological Exam Neurological exam: Present: alert - Psychiatric Psychiatric exam: Present: normal affect, normal mood Internal Medicine: Result - Labs CBC & Chem 7: 05/05/17 05:46 05/05/17 05:46 Labs: Short CBC 05/05/17 Range/Units 05:46 WBC 4.5 (4.3-11.1) K/mcL Hgb 10.4 L (11.5-15.4) g/dL Hct 30.7 L (35.3-44.9) % Plt Count 143 (140-400) K/mcL Neutrophils # 3.7 (1.6-8.9) K/mcL BMP 05/05/17 05:46 Sodium 139 Potassium 3.5 Chloride 102 Carbon Dioxide 30 H BUN 24 H Creatinine 0.78 Glucose 120 H Calcium 9.0 - ABG Interpretation ABG results: PT/INR, D-dimer PT 12.9 Seconds (9.4-12.1) H 05/04/17 10:07 - VTE Documentation of Mechanical Device: Intermittent pneumatic compression device Consult Discharge Plan - Plan Referrals: Leoncio Joe MD [Primary Care Provider] - 05/12/17 3:00 pm
[2017-05-05] MEDS: *HR* Heparin 5,000 UNIT/ML VIAL SQ SCH (16:42)
[2017-05-05] MEDS: Vancomycin 1,250 MG in D5% in Water 250 ML IVPB SCH (16:42)
[2017-05-05] MEDS: Mirtazapine 15 MG TABLET PO SCH (20:08)
[2017-05-06] MEDS: levETIRAcetam 250 MG TABLET PO SCH ×3 (01:24→22:18)
[2017-05-06] MEDS: Ipratropium/Albuterol Neb 3 ML IH SCH ×5 (04:39→21:52)
[2017-05-06 05:43] LABS: Eosinophils # 0.4 K/mcL (0.0-0.6); Eosinophils % 8.6 %; Hematocrit 31.8 % (35.3-44.9); Hemoglobin 10.7 g/dL (11.5-15.4); Immature Granulocytes % 0.4 % (0-4); Lymphocytes # 0.7 K/mcL (0.6-4.6); Lymphocytes % 14.5 %; Mean Corpuscular HGB Conc 33.6 g/dL (31.6-35.5); Mean Corpuscular Hemoglobin 29.9 pg (28.0-33.3); Mean Corpuscular Volume 88.8 fL (83.0-100.0); Mean Platelet Volume 10.7 fL (9.4-12.4); Monocytes # 0.3 K/mcL (0.0-1.3); Monocytes % 6.5 %; Neutrophils # 3.3 K/mcL (1.6-8.9); Platelet Count 138 K/mcL (140-400); Red Blood Count 3.58 M/mcL (3.82-4.97)
[2017-05-06 05:57] LABS: Hemoglobin A1C 4.9 %
[2017-05-06 06:03] LABS: BUN/Creatinine Ratio 37 (6-26); Blood Urea Nitrogen 32 mg/dL (7-20); Calcium 8.7 mg/dL (8.6-10.8); Carbon Dioxide 32 mEq/L (19-29); Chloride 101 mEq/L (98-109); Glucose 122 mg/dL (70-99); Magnesium 1.9 mg/dL (1.6-2.6); Osmolality,Calculated 296 (280-300); Phosphorous 3.6 mg/dL (2.3-4.7); Potassium 3.7 mEq/L (3.5-4.5); Sodium 139 mEq/L (136-145); eGFR For African Americans > 60 (> 60); eGFR For Non-African Americans > 60 (> 60)
[2017-05-06] MEDS: *HR* Heparin 5,000 UNIT/ML VIAL SQ SCH ×2 (06:15→17:29)
[2017-05-06 09:03] LABS: ABG Base Excess 5.9 mEq/L (-2.0 to 3.0); ABG HCO3 30.6 mEQ/L (21-27); ABG Oxygen Saturation 97 % (95-98); ABG PCO2 44 mmHg (35-45); ABG PH 7.45 pH Units (7.32-7.45); ABG PO2 82 mmHg (85-104)
[2017-05-06 09:04] LABS: Blood Gas FiO2 21 %
[2017-05-06] MEDS: Furosemide 20 MG/2 ML VIAL IVP SCH ×2 (09:30→17:29)
[2017-05-06] MEDS: Metoprolol XL (24 HR) Succ 25 MG TAB.ER.24H PO SCH (09:30)
[2017-05-06] MEDS: Loratadine 10 MG TABLET PO SCH (09:31)
[2017-05-06] MEDS: Isosorbide MONOnitrate (24 HR) 30 MG TAB.ER.24H PO SCH (09:31)
[2017-05-06] MEDS: Multivit/Ca/Min/Fe/FA 1 TAB TABLET PO SCH (09:31)
[2017-05-06] MEDS: Aspirin 81 MG TAB.CHEW PO SCH (09:31)
[2017-05-06] MEDS: Insulin LISPRO 300 UNITS/3 ML VIAL SQ SCH ×4 (09:32→21:00)
[2017-05-06] MEDS: Beclomethasone 80mcg MDI IH SCH ×3 (11:18→21:52)
[2017-05-06] MEDS: Vancomycin 1,250 MG in D5% in Water 250 ML IVPB SCH (14:12)
--- NOTE | 2017-05-06 15:05 | Internal Med Progress Note ---
Date of Encounter: 05/06/17 Time of Encounter: 13:06 - Assessment and plan (1) HCAP (healthcare-associated pneumonia) Current Visit: Yes Status: Suspected Assessment and plan: Overall improving, however noted to have increase demand in O2 supplementation Will provide with bipap supplementation continue vancomycin and levaquin O2 supplementation monitor O2 saturation f/u blood cultures will closely monitor PT/OT eval noted: ECF recommended web worker consulted for placement (2) COPD (chronic obstructive pulmonary disease) Current Visit: No Status: Chronic Assessment and plan: continue O2 supplementation and bronchodilator therapy Qualifiers: COPD type: unspecified COPD Qualified Code(s): J44.9 - Chronic obstructive pulmonary disease, unspecified (3) CVA, old, cognitive deficits Current Visit: No Status: Chronic Assessment and plan: ocntinue asa, plavix, statin (4) Diabetes mellitus Current Visit: No Status: Chronic Assessment and plan: HbA1C:4.9 patient will not be discharged on any antihyperglycemic agents upon discharge will monitor accuchecks while hospitalized Qualifiers: Diabetes mellitus type: type 2 Diabetes mellitus complication status: without complication Diabetes mellitus terminal press operator insulin use: without senior care use Qualified Code(s): E11.9 - Type 2 diabetes mellitus without complications (5) Diastolic CHF due to valvular disease Current Visit: No Status: Chronic Assessment and plan: continue diuretic therapy monitor I/Os, fluid restriction diet (6) DVT prophylaxis Current Visit: Yes Status: Acute Assessment and plan: heparin SQ (7) Hypertension Current Visit: No Status: Chronic Assessment and plan: BP within acceptable range continue home medications Hydralazine 10mg IV q6h prn SBP>150 monitor BP closely Qualifiers: Hypertension type: essential hypertension Qualified Code(s): I10 - Essential (primary) hypertension (8) Pleural effusion Current Visit: Yes Status: Acute Assessment and plan: likely secondary to PNA will continue to treat PNA and continue IV diuresis (9) Seizure disorder Current Visit: No Status: Chronic Assessment and plan: continue home medications - Subjective Interval history: Patient seen and examined at bedside. Sitting eating lunch. Appears more awake compared to previous day. States her breathing is better but not at her baseline. Noted to be persistently hypercapneic. Will provide bipap support. No overnight issues reported. PT eval noted: ECF recommended. information services manager consulted for ECF placement - Constitutional Vitals: Temp Pulse Resp BP Pulse Ox 97.4 F L 75 18 135/64 98 05/06/17 12:07 05/06/17 12:07 05/06/17 11:18 05/06/17 12:07 05/06/17 12:07 General appearance: Present: A&O X 3, pleasant, no acute distress, answers questions appropriately - Head Head exam: Present: atraumatic, normocephalic - Eye Eye exam: Present: conjuntiva pink, sclera anicteric - Respiratory Respiratory exam: Present: decreased breath sounds. Absent: respiratory distress, wheezes - Cardiovascular Cardiovascular exam: Present: RRR, +S1, +S2. Absent: diastolic murmur, gallop, rubs, systolic murmur - GI/Abdominal GI/Abdominal exam: Present: normal bowel sounds, soft, no peritoneal signs. Absent: distended, tenderness - Extremities Exam Extremities exam: Present: warm, radial pulses palpable and symetrical. Absent : calf tenderness, pedal edema - Neurological Exam Neurological exam: Present: alert - Psychiatric Psychiatric exam: Present: normal affect, normal mood Internal Medicine: Result - Labs CBC & Chem 7: 05/06/17 04:48 05/06/17 04:48 Labs: Short CBC 05/06/17 Range/Units 04:48 WBC 4.8 (4.3-11.1) K/mcL Hgb 10.7 L (11.5-15.4) g/dL Hct 31.8 L (35.3-44.9) % Plt Count 138 L (140-400) K/mcL Neutrophils # 3.3 (1.6-8.9) K/mcL BMP 05/06/17 04:48 Sodium 139 Potassium 3.7 Chloride 101 Carbon Dioxide 32 H BUN 32 H Creatinine 0.87 Glucose 122 H Calcium 8.7 - ABG Interpretation ABG results: ABG ABG pH 7.45 pH Units (7.32-7.45) 05/06/17 08:40 ABG pCO2 44 mmHg (35-45) 05/06/17 08:40 ABG pO2 82 mmHg (85-104) L 05/06/17 08:40 ABG O2 Saturation 97 % (95-98) 05/06/17 08:40 PT/INR, D-dimer PT 12.9 Seconds (9.4-12.1) H 05/04/17 10:07 - VTE Documentation of Mechanical Device: Intermittent pneumatic compression device Consult Discharge Plan - Plan Referrals: Leoncio Joe MD [Primary Care Provider] - 05/12/17 3:00 pm
[2017-05-06] MEDS: Mirtazapine 15 MG TABLET PO SCH (22:19)
[2017-05-06] MEDS: *HR* HYDROcodone/Acet 5/325 mg TABLET PO PRN (22:19)
[2017-05-07] MEDS: Ipratropium/Albuterol Neb 3 ML IH SCH ×2 (04:19→10:55)
[2017-05-07] MEDS: *HR* HYDROcodone/Acet 5/325 mg TABLET PO PRN (05:53)
[2017-05-07] MEDS: *HR* Heparin 5,000 UNIT/ML VIAL SQ SCH (05:53)
[2017-05-07 06:59] LABS: Eosinophils # 0.4 K/mcL (0.0-0.6); Eosinophils % 9.5 %; Hematocrit 32.3 % (35.3-44.9); Hemoglobin 10.6 g/dL (11.5-15.4); Lymphocytes # 0.8 K/mcL (0.6-4.6); Lymphocytes % 17.9 %; Mean Corpuscular HGB Conc 32.8 g/dL (31.6-35.5); Mean Corpuscular Hemoglobin 29.9 pg (28.0-33.3); Mean Platelet Volume 10.9 fL (9.4-12.4); Monocytes # 0.3 K/mcL (0.0-1.3); Monocytes % 8.1 %; Neutrophils # 2.7 K/mcL (1.6-8.9); Platelet Count 132 K/mcL (140-400); Red Blood Count 3.55 M/mcL (3.82-4.97); Red Cell Distribution Width 15.2 % (11.5-14.5); Segmented Neutrophils % 64.5 %
[2017-05-07 07:08] LABS: BUN/Creatinine Ratio 45 (6-26); Blood Urea Nitrogen 38 mg/dL (7-20); Calcium 8.6 mg/dL (8.6-10.8); Carbon Dioxide 27 mEq/L (19-29); Chloride 104 mEq/L (98-109); Glucose 111 mg/dL (70-99); Osmolality,Calculated 296 (280-300); Phosphorous 4.5 mg/dL (2.3-4.7); Potassium 3.9 mEq/L (3.5-4.5); Sodium 138 mEq/L (136-145); eGFR For African Americans > 60 (> 60); eGFR For Non-African Americans > 60 (> 60)
[2017-05-07 07:43] LABS: Platelet Estimate Normal (Normal)
[2017-05-07] MEDS: Loratadine 10 MG TABLET PO SCH (07:54)
[2017-05-07] MEDS: Furosemide 20 MG/2 ML VIAL IVP SCH (07:54)
[2017-05-07] MEDS: Multivit/Ca/Min/Fe/FA 1 TAB TABLET PO SCH (07:54)
[2017-05-07] MEDS: Isosorbide MONOnitrate (24 HR) 30 MG TAB.ER.24H PO SCH (07:55)
[2017-05-07] MEDS: Metoprolol XL (24 HR) Succ 25 MG TAB.ER.24H PO SCH (07:55)
[2017-05-07] MEDS: Aspirin 81 MG TAB.CHEW PO SCH (07:55)
[2017-05-07] MEDS: Insulin LISPRO 300 UNITS/3 ML VIAL SQ SCH ×2 (08:54→13:44)
[2017-05-07] MEDS ORDERED: levoFLOXacin 750 MG TABLET PO SCH (09:00)
[2017-05-07] MEDS ORDERED: Levofloxacin 750 MG/150 ML 750 MG/150 ML BAG IVPB SCH (09:00)
--- NOTE | 2017-05-07 09:27 | Discharge Summary ---
Date of Encounter: 05/07/17 Time of Encounter: 09:22 - Discharge Diagnosis (1) HCAP (healthcare-associated pneumonia) Priority: Primary Status: Suspected (2) COPD (chronic obstructive pulmonary disease) Priority: Secondary Status: Chronic Qualifiers: COPD type: unspecified COPD Qualified Code(s): J44.9 - Chronic obstructive pulmonary disease, unspecified (3) CVA, old, cognitive deficits Priority: Secondary Status: Chronic (4) Diabetes mellitus Priority: Secondary Status: Chronic Qualifiers: Diabetes mellitus type: type 2 Diabetes mellitus complication status: without complication Diabetes mellitus intermodal dispatcher insulin use: without intermodal dispatcher use Qualified Code(s): E11.9 - Type 2 diabetes mellitus without complications (5) Diastolic CHF due to valvular disease Priority: Secondary Status: Chronic (6) DVT prophylaxis Priority: Secondary Status: Acute (7) Hypertension Priority: Secondary Status: Chronic Qualifiers: Hypertension type: essential hypertension Qualified Code(s): I10 - Essential (primary) hypertension (8) Pleural effusion Priority: Secondary Status: Acute (9) Seizure disorder Priority: Secondary Status: Chronic - Discharge Medications Prescriptions: HYDROcodone/Acet 7.5/325 mg [[place] 7.5-325 mg] 1 tab PO Q6H PRN #20 PRN Reason: Pain levoFLOXacin [Levaquin] 750 mg PO Q48H #3 tab Home Medications: Aspirin 81 mg PO DAILY 06/08/16 [History] Clopidogrel [Plavix] 75 mg PO DAILY 06/08/16 [History] Escitalopram [Lexapro] 20 mg PO HS 06/08/16 [History] Ferrous Sulfate [Iron] 325 mg PO DAILY 06/08/16 [History] Lactose-Reduced Food [Ensure Complete] 1 bottle PO BID 06/08/16 [History] LevETIRAcetam [Keppra] 500 mg PO Q12H 06/08/16 [History] Melatonin [Melatin] 3 mg PO HS PRN 06/08/16 [History] Metoprolol XL (24 HR) Succ [Toprol Xl] 12.5 mg PO DAILY 06/08/16 [History] Mirtazapine [Remeron] 15 mg PO HS 06/08/16 [History] Multivitamin [Multivitamins] 1 tab PO DAILY 06/08/16 [History] Isosorbide MONOnitrate (24 HR) [Imdur] 30 mg PO DAILY #30 tab.er.24h 06/10/16 [ Rx] Methylphenidate HCl [Ritalin] 20 mg PO BID 06/27/16 [History] Albuterol Neb [Proventil Neb] 2.5 mg IH Q6HR 30 Days 06/29/16 [Rx] GuaiFENesin ER [Mucinex] 600 mg PO BID #10 tbbp.12hr 06/29/16 [Rx] ALPRAZolam [Xanax 0.5 MG Tablet] 0.5 mg PO HS PRN #10 tablet 06/30/16 [Rx] Albuterol Sulfate [Proair Respiclick] 2 puff IH Q4H PRN 02/12/17 [History] Fexofenadine HCl [Allergy Relief] 180 mg PO DAILY 02/12/17 [History] Fluticasone Propionate [Flovent Hfa] 1 puff IH BID 02/12/17 [History] Oxybutynin Chloride [Ditropan Xl] 5 mg PO HS 02/12/17 [History] Oxygen 2 l NS AD 02/12/17 [History] Triamcinolone Acet 0.1% CRM [Kenalog] 1 appl TP BID 02/12/17 [History] Umeclidinium [place] [Incruse Ellipta] 1 puff IH DAILY 02/12/17 [History] Furosemide [Lasix] 20 mg PO BID #20 05/07/17 [Rx] HYDROcodone/Acet 7.5/325 mg [[place] 7.5-325 mg] 1 tab PO Q6H PRN #20 05/07/17 [ Rx] levoFLOXacin [Levaquin] 750 mg PO Q48H #3 tab 05/09/17 [Rx] Allergies/Adverse Reactions: Allergies Amoxicillin Allergy (Verified 12/17/16 09:08) Rash sulfamethoxazole [From Bactrim] Allergy (Verified 12/17/16 09:08) Hives trimethoprim [From Bactrim] Allergy (Verified 12/17/16 09:08) Hives Date of admission: 05/04/17 16:00 Primary care physician: Leoncio Joe MD Consults: 05/05/17 13:11 Consult to Occupational Therapy [CONS] Routine Comment: Evaluate, develop and implement POC Reason for Consult: mirelaal 05/06/17 07:12 Consult to Rug Washer [CONS] Routine Reason for SW Consult: per therapy needs ecf Discharging clinician: Martha Gore Anticipated date of discharge: 05/07/17 - Patient Status Disposition: Transfer SNF Condition: Good Functional capacity at discharge: uses cane/walker Overall status at discharge: patient is progressing back to baseline - Discharge Instructions Follow Up With: Leonico Joe MD [Primary Care Provider] - 05/12/17 3:00 pm Forms: ED Satisfaction Letter Additional Instructions: Please follow up with your primary care physician within one week after your discharge from the hospital. please continue to take oral antibiotics as prescribed. your home dose of Lasix has been increased to 20mg twice a day. Please continue to wear oxygen at all times. Please resume all your home medications as prescribed by your primary care physician. You were noted to have HbA1C of 4.9 and are not considered to be a diabetic, due to which your home dose of Metformin has been discontinued. Please inform your primary care physician of this change. Your blood glucose has been within acceptable range throughout the course of your hospitalization without administration of any antihyperglycemic agents. - Diet and Activity Activity: as per physical therapy, wear oxygen at all times Diet: low salt diet Hospital course: Ms. Quinones is a 86 year old female with PMH of CHF, CAD, COPD on LTOT, GERD, HTN, s/p C-spine fx who was admitted for acute respiratory distress secondary to HCAP. Patient was started on empiric IV abx therapy to which she responded appropriately. Her abx were de-escalated as per culture results. She was evaluated by physical therapy and SNF was recommended. Patient is currently hemodynamically stable and will be discharged to [facility] pending rehab placement. She demonstrates understanding of her diagnosis and agrees with the discharge care and plan. - Time Spent with Patient Total time spent providing and/or coordinating discharge services: Less than 30 minutes - Constitutional Vitals: Temp Pulse Resp BP Pulse Ox 98.4 F 77 16 151/70 96 05/07/17 06:44 05/07/17 06:44 05/07/17 06:44 05/07/17 06:44 05/07/17 06:44 General appearance: Present: A&O X 3, pleasant, no acute distress, answers questions appropriately - Head Head exam: Present: atraumatic, normocephalic - Eye Eye exam: Present: normal appearance, conjuntiva pink, sclera anicteric - Respiratory Respiratory exam: Absent: respiratory distress, wheezes - Cardiovascular Cardiovascular exam: Present: RRR, +S1, +S2. Absent: diastolic murmur, gallop, rubs, systolic murmur - GI/Abdominal GI/Abdominal exam: Present: normal bowel sounds, soft, no peritoneal signs. Absent: distended, tenderness - Extremities Exam Extremities exam: Present: warm, radial pulses palpable and symetrical. Absent : calf tenderness, cyanotic, pedal edema - Neurological Exam Neurological exam: Present: alert - Psychiatric Psychiatric exam: Present: normal affect, normal mood - VTE Documentation of Mechanical Device: Intermittent pneumatic compression device
--- NOTE | 2017-05-07 09:39 | Physician Discharge Referral ---
ExtendedCare Referral Info Transfer To: [facility] Provider in Charge after Transfer: PCP - Diagnosis (1) HCAP (healthcare-associated pneumonia) Priority: Primary Status: Suspected (2) COPD (chronic obstructive pulmonary disease) Priority: Secondary Status: Chronic (3) CVA, old, cognitive deficits Priority: Secondary Status: Chronic (4) Diabetes mellitus Priority: Secondary Status: Chronic (5) Diastolic CHF due to valvular disease Priority: Secondary Status: Chronic (6) DVT prophylaxis Priority: Secondary Status: Acute (7) Hypertension Priority: Secondary Status: Chronic (8) Pleural effusion Priority: Secondary Status: Acute (9) Seizure disorder Priority: Secondary Status: Chronic - Transfer Medications Prescriptions: HYDROcodone/Acet 7.5/325 mg [[place] 7.5-325 mg] 1 tab PO Q6H PRN #20 PRN Reason: Pain levoFLOXacin [Levaquin] 750 mg PO Q48H #3 tab Home Medications: Aspirin 81 mg PO DAILY 06/08/16 [History] Clopidogrel [Plavix] 75 mg PO DAILY 06/08/16 [History] Escitalopram [Lexapro] 20 mg PO HS 06/08/16 [History] Ferrous Sulfate [Iron] 325 mg PO DAILY 06/08/16 [History] Lactose-Reduced Food [Ensure Complete] 1 bottle PO BID 06/08/16 [History] LevETIRAcetam [Keppra] 500 mg PO Q12H 06/08/16 [History] Melatonin [Melatin] 3 mg PO HS PRN 06/08/16 [History] Metoprolol XL (24 HR) Succ [Toprol Xl] 12.5 mg PO DAILY 06/08/16 [History] Mirtazapine [Remeron] 15 mg PO HS 06/08/16 [History] Multivitamin [Multivitamins] 1 tab PO DAILY 06/08/16 [History] Isosorbide MONOnitrate (24 HR) [Imdur] 30 mg PO DAILY #30 tab.er.24h 06/10/16 [ Rx] Methylphenidate HCl [Ritalin] 20 mg PO BID 06/27/16 [History] Albuterol Neb [Proventil Neb] 2.5 mg IH Q6HR 30 Days 06/29/16 [Rx] GuaiFENesin ER [Mucinex] 600 mg PO BID #10 tbbp.12hr 06/29/16 [Rx] ALPRAZolam [Xanax 0.5 MG Tablet] 0.5 mg PO HS PRN #10 tablet 06/30/16 [Rx] Albuterol Sulfate [Proair Respiclick] 2 puff IH Q4H PRN 02/12/17 [History] Fexofenadine HCl [Allergy Relief] 180 mg PO DAILY 02/12/17 [History] Fluticasone Propionate [Flovent Hfa] 1 puff IH BID 02/12/17 [History] Oxybutynin Chloride [Ditropan Xl] 5 mg PO HS 02/12/17 [History] Oxygen 2 l NS AD 02/12/17 [History] Triamcinolone Acet 0.1% CRM [Kenalog] 1 appl TP BID 02/12/17 [History] Umeclidinium [place] [Incruse Ellipta] 1 puff IH DAILY 02/12/17 [History] Furosemide [Lasix] 20 mg PO BID #20 05/07/17 [Rx] HYDROcodone/Acet 7.5/325 mg [[place] 7.5-325 mg] 1 tab PO Q6H PRN #20 05/07/17 [ Rx] levoFLOXacin [Levaquin] 750 mg PO Q48H #3 tab 05/09/17 [Rx] Allergies/Adverse Reactions: Allergies Amoxicillin Allergy (Verified 12/17/16 09:08) Rash sulfamethoxazole [From Bactrim] Allergy (Verified 12/17/16 09:08) Hives trimethoprim [From Bactrim] Allergy (Verified 12/17/16 09:08) Hives - Respiratory Orders Oxygen / L per min (2L/min to maintain O2>90%) Smoking Cessation: Smoking cessation has been advised. For more information, call the [place] Tobacco Quit Line at 7-052-DZQB-NOW. - Rehabiliation Orders Other: Please follow up with your primary care physician within one week after your discharge from the hospital. please continue to take oral antibiotics as prescribed. your home dose of Lasix has been increased to 20mg twice a day. Please continue to wear oxygen at all times. Please resume all your home medications as prescribed by your primary care physician. You were noted to have HbA1C of 4.9 and are not considered to be a diabetic, due to which your home dose of Metformin has been discontinued. Please inform your primary care physician of this change. Your blood glucose has been within acceptable range throughout the course of your hospitalization without administration of any antihyperglycemic agents. CERTIFICATION: I certify that the transfer of the above named patient to an Extended Care Facility is necessary for the continuing treatment of the diagnosis listed. The above information is true and accurate reflection of patient's current condition. Confidential - Redisclosure prohibited without a patient's written consent.
[2017-05-07] MEDS: Beclomethasone 80mcg MDI IH SCH (10:55)
[2017-05-07] MEDS ORDERED: Vancomycin 1,000 MG in D5% in Water 250 ML IVPB SCH (13:00)
[2017-05-07 13:13] VITALS: BP 109/51
[2017-05-07] MEDS ORDERED: Aminoglycoside Consult 1 EACH MC ONE (14:02)
[2017-05-07] MEDS: levETIRAcetam 250 MG TABLET PO SCH (14:02)
== END 2017-05-07 14:03 | DRG 190 ==
LOC: 2NENU 09:44 → EMEROO 09:44 → 2NENU 13:46 → SUATTDRO 16:00 → 2NENU 05-06 06:14
PROVIDERS: ADMIT Internal Medicine; ATTEND Internal Medicine